=== PATIENT | male | born 1990 | race Caucasian/White ===

== ENCOUNTER 2019-03-18 12:28 | Emergency (ER) | payer SELFPAY ==
[2019-03-18 12:29] VITALS: BP 125/109; PULSE 94; RESP 16; TEMP 36.8; O2SAT 98; BMI 19.5
--- NOTE | 2019-03-18 13:15 | RAD_ITS ---
STUDY: X-RAY - UNILATERAL RIBS ( RIGHT ) WITH CHEST REASON FOR EXAM: Male, 28 years old. Anterior right rib pain after injury 3 days ago TECHNIQUE - RIBS: 4 view(s) of the ribs. TECHNIQUE - CHEST: PA COMPARISON: None. FINDINGS - RIBS: Normal visualized ribs without a demonstrated fracture. FINDINGS - CHEST: The lungs are clear but hyper expanded. There is no demonstrated pleural abnormality. Normal size heart. Normal mediastinum and pola. Normal visualized pulmonary arteries. Normal visualized aortic arch and descending thoracic aorta. Normal visualized thoracic spine. Normal visualized ribs, clavicles, and shoulders. There is no demonstrated abnormality of the visualized soft tissue structures of the upper abdomen. RAD/Ribs Uni Min 3V w/PA Chest IMPRESSION: RIBS: Normal x-ray examination of the ribs. CHEST: Nonacute x-ray examination of the chest. Electronically Signed: Garett Dailey MD at 13:39 EDT , Service support ,
[2019-03-18] MEDS: oxyCODONE 5 MG Tablet PO (13:16)
--- NOTE | 2019-03-18 14:04 | ED.VISSUMM ---
- ER Visit Summary Date of Service: 03/18/19 Chief Complaint: Right rib injury History of Present Illness: The patient is a 28 M who was hit in the right ribs by a metal bar 3 days ago while he was trying to tie down his load on his truck. Patient states pain has continued to worsen. He pain is worse with movement, palpation, or deep breathing. He did take some Tylenol this morning to try to help with pain. Physical Examination: Vital signs unremarkable. Pulse ox is 98% on room air. Patient sitting upright the side the bed holding his right ribs. He appears uncomfortable. Heart is regular rate and rhythm. Lung sounds are clear with air movement bilaterally. He does have right anterior lateral rib tenderness. No overlying ecchymosis or abrasion. There is no crepitus. Test Results: Rib series with chest x-ray is unremarkable. Emergency Department Course and Treatment: Patient is given a dose of oxycodone here. He had taken Tylenol prior to arrival. On repeat evaluation he is resting more comfortably. We discussed the importance of deep breathing. He will be given a short course of pain medication to help with his symptoms. He will be referred to local PCP to establish primary care. Treatment Plan: [] Disposition: Discharge Impression: Right rib contusion This note was generated with [employer] dictation software. It may contain incorrect words, spelling, and punctuation that were not noted in review of the chart prior to signing ED Disposition - Plan for ED Patient: Disposition: Home or Assisted Living Instructions: ED Contusion Rib Prescriptions: Hydrocodone Bitart/Apap 5-325 [[place] 5MG-325MG] 1 tablet PO Q6H PRN PRN 3 Days #10 tablet PRN Reason: Pain Referrals: Fast,Eusebia, DO [NON-STAFF] - As Needed
[2019-03-18 14:18] VITALS: BP 129/80; PULSE 72; RESP 14; O2SAT 96
== END 2019-03-18 14:19 | disposition home or self-care (01) ==
PROVIDERS: Emergency Provider Emergency Medicine
DX: S20.211A Contusion of right front wall of thorax, initial encounter (principal); R06.00 Dyspnea, unspecified; W22.8XXA Striking against or struck by other objects, initial encounter; Y93.9 Activity, unspecified; Y92.9 Unspecified place or not applicable; Z72.0 Tobacco use
CPT/HCPCS: 71101; 99282

== ENCOUNTER 2020-01-18 18:15 | Emergency (ER) | payer SELFPAY ==
[2020-01-18 18:16] VITALS: BP 111/83; PULSE 85; RESP 18; TEMP 37.7; O2SAT 97; BMI 19.9
[2020-01-18 18:18] VITALS: BP 111/83; PULSE 85; RESP 18; TEMP 37.7; O2SAT 97
--- NOTE | 2020-01-18 18:45 | ED.DCSUM_ITS ---
- ER Visit Summary Date of Service: 01/18/20 Chief Complaint: Cellulitis right hand History of Present Illness: The patient is a 29 M who presents with cellulitis to his right hand that began yesterday. Patient states he cut his hand at work 4 days ago. Patient states it was a superficial laceration that did not require sutures. Patient states he was cleaning it with peroxide. Patient states that yesterday he noted some redness around the cut. Patient states there was some purulent drainage from this area. Patient states today when he woke up he noted redness going up his forearm. Patient denies any fevers or chills. Patient admits to some tingling in his hand. Patient denies any weakness. Physical Examination: Vital signs are stable. Patient is afebrile here. Patient is in no acute distress. Skin is warm dry. There is an open wound on the dorsal aspect of his right hand over the first MP joint. There is no pain with short arc motion of his MP joint. There is erythema around the wound and extending over the dorsal aspect of his hand and forearm. The redness stops at the proximal forearm. There is good range of motion of the wrist and forearm. There is good range of motion of all other digits. Sensation was intact to light touch in all digits. Capillary refill was less than 2 seconds in all digits. Emergency Department Course and Treatment: Patient was given a dose of Keflex here. Bacitracin dressing was applied to the wound. Patient was given a prescription for Keflex. Patient was instructed to continue using bacitracin. Patient was instructed to follow-up with a primary care physician in 2-3 days. Patient understood and was agreeable with the plan. All questions were answered. Disposition: Discharge home Impression: Cellulitis and lymphangitis right hand and forearm This note was generated with [employer] dictation software. It may contain incorrect words, spelling, and punctuation that were not noted in review of the chart prior to signing ED Disposition - Plan for ED Patient: Disposition: Home or Assisted Living Diagnosis: Acute lymphangitis of hand Instructions: Cellulitis Prescriptions: Cephalexin [Keflex] 500 mg PO Q6 #40 cap Prescription Printed Referrals: Care Physician,No Primary [Primary Care Provider] - Felipe Thorpe DO [STAFF PHYSICIAN] - 2 Days
[2020-01-18] MEDS: Cephalexin 500 MG Capsule PO (18:51)
[2020-01-18] MEDS: BACITRACIN 15 GM Tube 1 APPLIC TOPICAL (18:52)
== END 2020-01-18 19:07 | disposition home or self-care (01) ==
LOC: ED 18:48
PROVIDERS: Emergency Provider Emergency Medicine
DX: L03.113 Cellulitis of right upper limb (principal); J02.9 Acute pharyngitis, unspecified; R05 Cough; F17.200 Nicotine dependence, unspecified, uncomplicated
CPT/HCPCS: 99283

== ENCOUNTER 2020-05-12 13:47 | Emergency (ER) | payer OTHER, SELFPAY ==
[2020-05-12 13:48] VITALS: BP 136/74; PULSE 134; RESP 16; TEMP 36.3; O2SAT 96; BMI 21.1
[2020-05-12] MEDS: Doxycycline 100 MG CAPSULE PO (14:14)
[2020-05-12] MEDS: Naproxen 250 MG Tablet 500 MG PO (14:16)
--- NOTE | 2020-05-12 14:17 | ED.VISSUMM ---
- ER Visit Summary Date of Service: 05/12/20 Chief Complaint: Lump on chin. History of Present Illness: The patient is a 29 M with no primary care physician. He reports that he has had lumps underneath his mandible bilaterally for approximately [address] Beard 3 to 4 months ago and was told that those are cysts. He was told that he needed to have them removed. He states the one on the left is increased in size this week. He describes a squeezing pain instead of 10 at worst and 3 of 10 currently. Is worsened by pushing on it. Is relieved by ibuprofen. He denies any constitutional symptoms. No fever, chills, nausea, or vomiting. He denies any dental pain. Discussed the patient fact that he is tachycardic. He reports that I live on red bull and coffee. Drank a red bull just prior to arrival in emergency department. Physical Examination: Vitals: Stable. Afebrile. General: Well-nourished and well-developed. Head: Normocephalic atraumatic. Neck: Supple, no lymphadenopathy. No JVD. Just inferior to his mandible in the submental region on the right there is a being sized sebaceous cyst. This is freely mobile. On the left there is a marble sized 1 with minimal erythema. I do not of free appreciate any induration or fluctuance. Cardiovascular: Tachycardic regular rhythm. No murmurs. Respiratory: No respiratory distress. Clear to auscultation bilaterally. Abdominal: Soft, nontender, nondistended, normal bowel sounds. No guarding, rebound, or peritoneal signs. Back: Nontender. Extremities: Nontender, no edema. Skin: Normal color, no rash. Neurologic: Alert and oriented ?3. Cranial nerves II through XII are intact. Normal strength and sensation. Psych: Normal affect. Emergency Department Course and Treatment: Had a prolonged discussion with the patient about treatment options. He has decided that he does not want an incision and drainage performed at this point. He is given doxycycline and naproxen. Treatment Plan: Patient will be discharged doxycycline naproxen. Instructed to follow-up with Dr. James within a week for a repeat exam and further treatment. Return to the emergency department for any worsening symptoms. Disposition: To home in improved and stable condition. Impression: 1. Infected sebaceous cyst of chin. This note was generated with Dragon dictation software. It may contain incorrect words, spelling, and punctuation that were not noted in review of the chart prior to signing ED Disposition - Plan for ED Patient: Instructions: ED Epidermoid Cyst Infect Antibiotics Prescriptions: Doxycycline 100 mg PO BID #14 capsule Naproxen [Naprosyn] 500 mg PO BID #14 tablet Referrals: Neo James MD [STAFF PHYSICIAN] - 1 Week
--- NOTE | 2020-05-12 14:31 | ED.RN ---
DISCHARGE INSTRUCTIONS GIVEN TO AND REVIEWED WITH PATIENT, PATIENT DENIES QUESTIONS OR CONCERNS AND VOICES UNDERSTANDING OF DISCHARGE INSTRUCTIONS. PT AMBULATES OUT OF ROOM WITHOUT DIFFICULTY.
== END 2020-05-12 14:30 | disposition home or self-care (01) ==
LOC: ED 14:24
PROVIDERS: Emergency Provider Emergency Medicine
DX: L72.3 Sebaceous cyst (principal); L08.9 Local infection of the skin and subcutaneous tissue, unspecified; F17.200 Nicotine dependence, unspecified, uncomplicated
CPT/HCPCS: 99283

== ENCOUNTER → 2021-05-12 17:50 | Outpatient (CLI) | payer SELFPAY ==
--- NOTE | 2021-05-12 17:58 | CT_ITS ---
STUDY: CT SOFT TISSUE NECK WITH CONTRAST REASON FOR EXAM: Male, 30 years old. Bilateral Neck Masses -- Rt. Side x 8 months -- Lt Side trippled in size recently -- Both are marked RADIATION DOSAGE (If Supplied By Facility): CTDIvol = ( 13.59 ) mGy, DLP = ( 434.69 ) mGycm TECHNIQUE: The patient was scanned in a multi-detector CT scanner. High resolution transaxial imaging was performed following intravenous administration of IV 100mL Isovue-370. Sagittal and coronal images were reconstructed. Individualized dose optimization techniques were used for this CT. COMPARISON: None. FINDINGS: Bilateral globes are intact. Small air-fluid level small polyps in the right maxillary sinus. Mucoperiosteal thickening of the left ethmoid air cells. Unremarkable visualized brain parenchyma. Intact bilateral parotid and submandibular glands. Vascular structures are intact. The airway is patent. Epiglottis of normal contour and size. Thyroid gland is homogeneous. Hypodense rim-enhancing lesions in the bilateral submandibular areas measuring 1.4 x 0.8 cm on the right and 0.7 x 0.5 cm on the left. These may represent abscesses or necrotic lymph nodes. Clinical correlation recommended. Mild emphysematous changes in the lung apices. Osseous structures intact. CT/Soft Tissue Neck WITH Contrast IMPRESSION: Two small hypodense lesions with enhancing rim located in the bilateral submandibular areas, which may represent abscesses or necrotic lymph nodes. Clinical correlation recommended. Electronically Signed: Zeferino Hays MD at 0:40 EDT Tel , Service support ,
== END ==
LOC: CT 17:52
PROVIDERS: Visit Provider Otolaryngology
DX: R22.1 Localized swelling, mass and lump, neck (principal)
CPT/HCPCS: 70491; Q9967

== ENCOUNTER → 2021-06-16 | Outpatient (CLI) | payer SELFPAY | END | disposition home or self-care (01) | LOC: LABSPEC 14:59 | PROVIDERS: Referring Provider Otolaryngology; Visit Provider Otolaryngology | DX: Z11.59 Encounter for screening for other viral diseases (principal); Z03.818 Encounter for observation for suspected exposure to other biological agents ruled out | CPT/HCPCS: 87635; U0005; U0003 ==

== ENCOUNTER → 2021-06-17 | Outpatient (CLI) | payer SELFPAY ==
--- NOTE | 2021-06-17 09:23 | LES_PTH ---
PATIENT: BESS WILKINSON LOC: [facility] U#:[id number] AGE/SX: 30/M ROOM: RE06/17/[address]: Dr. Curtis Anderson MD : 1990 BED: DIS: 06/17/2021 SPEC #: [id number] RECD: 06/17/21 14:45 STATUS: SUSANNA RENito #: [id number] SHAY: 06/17/21 09:[address]: Curtis Anderson DEPT: SURGICAL PATHOLOGY RECD BY: Skylar Muñiz ENTERED: 06/18/21 08:47 SP TYPE: Lesion OTHR DR: No Primary Care Phys WAS Tissues: Neck, NOS Procedures: Surgery Specimen Level III HEADER OPERATION: Excision neck masses PRE-OP DIAGNOSIS: Neck masses TISSUE SUBMITTED: Right neck mass MICROSCOPIC DIAGNOSIS Right neck mass, excision: Epidermal inclusion cyst. IRIS:mary 06/19/2021 MICROSCOPIC DESCRIPTION Slides are reviewed. GROSS DESCRIPTION Received is one container labeled with the patient's name and not further designated. The specimen consists of previously ruptured mcclendon-white cyst measuring 1.5 x 1.2 x 0.5 cm. The cyst content consists of mcclendon-white cheesy material. The cyst is bisected and submitted entirely in one cassette. Also present in the container are multiple fragments of mcclendon-white tissue consistent with cyst material. The entire specimen is submitted in one cassette. / SJ:mary 06/18/21 TC:5 [facility]: [id number]
== END | disposition home or self-care (01) ==
LOC: LABSPEC 15:14
PROVIDERS: Referring Provider Otolaryngology; Visit Provider Otolaryngology
DX: L72.0 Epidermal cyst (principal)
CPT/HCPCS: 88304; 88305

== ENCOUNTER 2023-06-16 17:38 | Emergency (ER) | payer SELFPAY ==
[2023-06-16 17:41] VITALS: BP 145/93; PULSE 78; RESP 18; TEMP 36.3; O2SAT 98; BMI 20.5
--- NOTE | 2023-06-16 17:50 | RAD_ITS ---
STUDY: X-RAY - UNILATERAL RIBS ( LEFT ) WITH CHEST REASON FOR EXAM: Male, 32 years old. INJURY TECHNIQUE - RIBS: 4 view(s) of the ribs. TECHNIQUE - CHEST: Single frontal view of the chest. COMPARISON: March 18, 2019 FINDINGS - RIBS: Normal visualized ribs without a demonstrated fracture. FINDINGS - CHEST: The lungs are clear and expanded. There is no demonstrated pleural abnormality. Normal size heart. Normal mediastinum and pola. Normal visualized pulmonary arteries. Normal visualized aortic arch and descending thoracic aorta. Normal visualized thoracic spine. Normal visualized ribs, clavicles, and shoulders. There is no demonstrated abnormality of the visualized soft tissue structures of the upper abdomen. RAD/Ribs Uni Min 3V w/PA Chest IMPRESSION: RIBS: Normal x-ray examination of the ribs. CHEST: Normal x-ray examination of the chest. Electronically Signed: Brady Wei MD at 18:36 EDT ,
--- NOTE | 2023-06-16 18:28 | EX.ED.GENINJ ---
HPI History of Present Illness Chief Complaint: Chest Other Informant: patient Onset/Context/Timing Onset: Days (5 days ago) Narrative Narrative: Patient presents with left rib injury. He states he was wrestling with a coworker 5 days ago when he felt a popping sensation in his left lateral chest. Since that time he had increasing pain and pain is worse with a deep breath. He has been taking ibuprofen 3 times a day. PFSH PFS Medical History no medical history no medical history Home Medications doxycycline monohydrate 100 mg capsule 100 mg PO BID #14 caps 05/12/20 [Rx Last Taken Unknown] naproxen 500 mg tablet 500 mg PO BID #14 tabs 05/12/20 [Rx Last Taken Unknown] Allergy/AdvReac Type Severity Reaction Status Date / Time No Known Allergies Allergy Verified 06/16/23 17:40 Social History Smoking Status: Current every day smoker ROS ROS ED Constitutional Constitutional ED: Denies chills or fever(s) Eyes Eyes: Denies change in vision ENT ENT ED: Denies rhinorrhea or sore throat Cardiovascular Cardiovascular: Reports chest pain; Denies palpitations Respiratory/Chest Respiratory/Chest: Reports dyspnea; Denies cough Gastrointestinal Gastrointestinal: Denies abdominal pain, nausea or vomiting Musculoskeletal Musculoskeletal: Denies extremity pain Integumentary Denies Abrasions or rash Neurologic Neurologic: Denies headache(s) or weakness Psychiatric Psychiatric: Denies anxiety or depression Allergic/Immunologic Allergic/Immunologic ED: Denies lip swelling or urticaria EXAM Physical Exam Const Vital Signs: 06/16/23 17:41 Temperature 97.3 F L Temperature Source Temporal Pulse Rate 78 Respiratory Rate 18 Blood Pressure 145/93 H Blood Pressure Mean 110 Pulse Ox 98 Oxygen Delivery Method Room Air Positive well nourished and well developed General Appearance ED: well developed HEENT Reports normocephalic and head/scalp atraumatic Eyes PERRL and EOMs intact bilaterally Neck supple Chest Wall inspection of chest normal Chest Narrative: Left lateral chest wall tenderness. No crepitus. Resp normal respiratory effort and clear to auscultation bilaterally Cardio regular rate and regular rhythm GI non-tender Palpation: soft Extremity normal to inspection Neuro oriented x3 and no sensory deficits noted Sensorium / Orientation: alert Motor Exam: strength 5/5 throughout Psych mental status grossly normal Skin no rashes or lesions noted MDM MDM MDM Narrative Medical decision making narrative: Rib series with chest x-ray obtained per nursing protocol. Per my interpretation I see no obvious displaced rib fracture and no pneumothorax. Radiology interpretation is reviewed and agrees. Patient does not want anything for pain at home. He will continue his Tylenol and ibuprofen. We discussed importance of deep breathing to prevent pneumonia. Return instructions given Radiography Diagnostic Testing: Clinical Impression(s) from Imaging Studies Ribs w/Chest X-Ray 06/16/23 17:50 IMPRESSION: RIBS: Normal x-ray examination of the ribs. CHEST: Normal x-ray examination of the chest. Electronically Signed: Brady Wei MD at 18:36 EDT , Discharge Plan Triage Chief Complaint: Chest Other ED Provider: Nina Saunders Dx/Rx/DC Orders Clinical Impression: Rib contusion Instructions: ED Chest Wall Contusion Prescriptions: No Action doxycycline monohydrate 100 MG capsule 100 mg PO BID Qty: 14 0RF naproxen 500 MG tablet 500 mg PO BID Qty: 14 0RF Primary Care Provider: Care Physician,No Primary Referrals: Kayley Anderson MD [Med Staff - Neonatal Intensive Care Nurse] - As Needed Care Physician,No Primary [Primary Care Provider] - Disposition Disposition: Home, Self Care
[2023-06-16 19:37] VITALS: RESP 18
[2023-06-16 19:38] VITALS: RESP 18
== END 2023-06-16 19:39 | disposition home or self-care (01) ==
PROVIDERS: Emergency Provider Emergency Medicine; Visit Provider Emergency Medicine
DX: S20.219A Contusion of unspecified front wall of thorax, initial encounter (principal); F17.200 Nicotine dependence, unspecified, uncomplicated; X58.XXXA Exposure to other specified factors, initial encounter; Y93.72 Activity, wrestling
CPT/HCPCS: 71101; 99282

== ENCOUNTER 2025-06-05 08:02 | Emergency (ER) | payer SELFPAY ==
[2025-06-05 08:03] VITALS: BP 126/87; PULSE 99; RESP 16; TEMP 36.7; O2SAT 100; BMI 19.3
--- NOTE | 2025-06-05 08:15 | EX.ED.DYSGE1 ---
HPI History of Present Illness Chief Complaint: Weakness Detail of Chief Complaint: Concern for Lyme disease Informant: patient Narrative Narrative: Patient presents to the emergency department concern for possible Lyme disease. Patient states that he found a tick on in the back of his head on the right side at the base of the skull. Tick was found a couple weeks ago. About a week ago he started having nausea and vomiting. Started having bodyaches. This morning he noted a rash over the left hip area. Patient states that his dogs recently were treated for Lyme. He had a fever 4 days ago but none since. [facility] Medical History (Updated 06/05/25 @ 09:[address] Lc Barbour DO) Collapsed lung C. difficile colitis Home Medications ?Medication ?Instructions ?Recorded ?Last Taken ?Type doxycycline monohydrate 100 mg 100 mg PO BID #14 caps 05/12/20 Unknown Rx capsule naproxen 500 mg tablet 500 mg PO BID #14 tabs 05/12/20 Unknown Rx doxycycline monohydrate 100 mg 100 mg PO BID #28 CAPSULES 06/05/25 Unknown Rx capsule Allergy/AdvReac Type Severity Reaction Status Date / Time No Known Allergies Allergy Verified 06/05/25 08:04 Social History Smoking Status: Current every day smoker tobacco type: cigarettes ROS ROS ED Review of Systems ROS Unobtainable: other Constitutional Constitutional ED: Reports fever(s) and lethargy; Denies chills, sweats or weight loss Eyes Eyes: Denies blurry vision, change in vision or diplopia ENT ENT ED: Denies rhinorrhea or sore throat Cardiovascular Cardiovascular: Denies chest pain, orthopnea or racing heartbeat Respiratory/Chest Respiratory/Chest: Denies cough, dyspnea, dyspnea on exertion, orthopnea or sputum Gastrointestinal Gastrointestinal: Denies abdominal pain, diarrhea, nausea or vomiting Genitourinary Genitourinary ED: Denies dysuria, hematuria or urinary frequency Musculoskeletal Musculoskeletal: Reports arthralgias; Denies back pain, myalgias or neck pain Integumentary Reports rash; Denies abscess or Abrasions Neurologic Neurologic: Denies headache(s) or weakness Psychiatric Psychiatric: Denies anxiety, depression or suicidal thoughts Endocrine Endocrinology: Denies polydipsia, polyphagia or polyuria Hematologic/Lymphatic Hematologic/Lymphatic: Denies easy bleeding, easy bruising or lymphadenopathy Allergic/Immunologic Allergic/Immunologic ED: Denies mouth swelling, tongue swelling or urticaria EXAM Physical Exam Const Vital Signs: 06/05/25 08:03 06/05/25 08:14 Temperature 98.1 F Temperature Source Temporal Pulse Rate 99 Respiratory Rate 16 Respiratory Effort Normal Blood Pressure 126/87 H Blood Pressure Mean 100 Pulse Ox 100 Oxygen Delivery Method Room Air Positive well nourished and well developed General Appearance ED: well developed and NAD HEENT Reports TM's clear and moist mucous membranes normocephalic and atraumatic; Negative for trauma or tenderness Tympanic Membrane ED: Yes TM's clear Eyes PERRL and EOMs intact bilaterally General Eye ED: Negative for pale conjunctiva or scleral icterus Neck no lymphadenopathy, supple and no JVD General: Negative for tenderness Chest Wall inspection of chest normal and palpation of chest normal Chest: Negative for tenderness Resp normal respiratory effort and clear to auscultation bilaterally Effort and Inspection: Negative for respiratory distress or pain with movement Auscultation: Negative for rhonchi, wheezes or diminished lung sounds Cardio regular rate, regular rhythm, S1 normal heart sound, S2 normal heart sound and no murmurs Peripheral Pulses: pulses 2+ throughout GI normal to inspection, nondistended, normoactive bowel sounds, soft to palpation, non-tender, non-distended and no masses Back/Spine no CVA tenderness and no thoracic nor lumbar tenderness Extremity normal to inspection Extremity Narrative: No tenderness with range of motion of the hip joints or knee joints. There is an area of erythema over the left lateral hip that is circular and measures approximately 8 cm in diameter. Some subtle central clearing. General Extremety ED: Negative for edema General Extremity: Negative for edema Neuro oriented x3, CN's II-XII intact bilaterally, no sensory deficits noted and gait normal Sensorium / Orientation: awake, alert, oriented to person, oriented to place and oriented to time Motor Exam: strength 5/5 throughout and strength abnormal Psych mental status grossly normal Skin No no rashes or lesions noted and no wounds Skin Narrative: Circular area of erythema over the left lateral hip with some mild central clearing. MDM MDM MDM Narrative Medical decision making narrative: Patient presents emergency department concern for Lyme disease. Had a tick bite couple weeks ago and then developed body aches and arthralgia's as well as a fever for day. Now rash to left hip. Clinically looks well. IV line established. CBC with differential obtained showing a 7.3 with hemoglobin 15 and platelet count of 172. Chemistries unremarkable. He had minimal elevation of his AST at 75 and ALT of 51. Alk phos was normal at 102. Patient had testing for Lyme sent out. I did start him on doxycycline. Will treat with doxycycline for 14 days. Will refer to primary care physician on-call for no doc. The rash over the left hip I suspect may be related to Lyme as it does appear to be somewhat bull's-eye in shape. I do not feel like that he has a septic joint. He has normal painless range of motion. Lab Data Attestation: I reviewed the patient's lab results. Labs: Laboratory Results - last 24 hr 06/05/25 08:25 WBC 7.3 RBC 4.77 Hgb 15.3 Hct 43.2 MCV 90.6 MCH 32.1 H MCHC 35.4 RDW Std Deviation 38.9 RDW Coeff of Michelle 11.9 Plt Count 172 MPV 9.9 Immature Gran % (Auto) 0.300 Neut % (Auto) 71.0 H Lymph % (Auto) 16.9 L Dillon % (Auto) 11.1 H Eos % (Auto) 0.3 Baso % (Auto) 0.4 Absolute Neuts (auto) 5.2 Absolute Lymphs (auto) 1.23 Nucleated RBC % 0 Sodium 133 Potassium 3.7 Chloride 96 L Carbon Dioxide 21.8 Anion Gap 15 BUN 8 Creatinine 1.01 Estim Creat Clear Calc 82.16 Est GFR (MDRD) Non-Af 101 BUN/Creatinine Ratio 8.2 L Glucose 122 H Calcium 9.7 Total Bilirubin 1.21 AST 75 H ALT 51 H Alkaline Phosphatase 102 Total Protein 7.3 Albumin 4.3 Globulin 3.0 Albumin/Globulin Ratio 1.4 Discharge Plan Triage Chief Complaint: Weakness ED Provider: Lc Barbour Dx/Rx/DC Orders Clinical Impression: Acute Lyme disease, Tick bite Instructions: ED Tick Bite, Antibiotic Treatment Prescriptions: New doxycycline monohydrate 100 mg capsule 100 mg PO BID Qty: 28 0RF No Action doxycycline monohydrate 100 MG capsule 100 mg PO BID Qty: 14 0RF naproxen 500 MG tablet 500 mg PO BID Qty: 14 0RF Primary Care Provider: Care Physician,No Primary Referrals: Surinder Morales MD [Med Staff - Active Staff] - 5-7 Days Care Physician,No Primary [Primary Care Provider] - Print Language: Swedish Disposition Disposition: Home, Self Care
[2025-06-05] MEDS: 0.9% Normal Saline (1000mL) 1,000 ML 1000 ML IV (08:31)
[2025-06-05 08:34] LABS: Hematocrit 43.2 % (40-54); Hemoglobin 15.3 g/dL (13.0-16.5); Immature Granulocytes Count 0.020 X10^3/uL (0.0-0.0); Mean Corp Hgb Conc 35.4 g/dL (32-36); Mean Corpuscular Volume 90.6 fL (80-94); Mean Platelet Vol. 9.9 fl (6.2-12.0); NRBC Flagged by Analyzer 0 % (0-5); Platelet Count 172 K/mm3 (150-450); RBC Distribution Width CV 11.9 % (11.6-14.6); RBC Distribution Width SD 38.9 fl (35.1-43.9); Red Blood Count 4.77 M/mm3 (4.6-6.2); White Blood Count 7.3 K/mm3 (4.4-11.0)
--- OUTSIDE RECORDS SUMMARY | 2025-06-05 08:57 | XMS RPT_ITS | CCD ---
Author Organization [facility] Inform ion Partnership [facility] Care Team Providers Care Burner Hand Name Role Phone LIZ CHAVEZ (MANAGER ORDER) Unavailable LIZ Velasquez (MANAGER ORDER) Unavailable LIZ Velasquez (MANAGER ORDER) Unavailable Unavai bryan PETERSON APRN - MANAGER ORDER, MCKENZIE Vazquez Primary Care [facility] JUSTIN, DR ROMEL Arriaga Admitting [facility], DR ROMEL Arriaga Attending [facility], DR ROMEL Arriaga Primary Care [facility] Attending [facility] Primary Care [facility] Admitting Unavailable Nina Saunders Attending Unavailable Care Physician, No Primary Primary Care Unava Rosenda Barahona MD Unavailable [phone] CALVIN FARR MD Unavailable [phone] Medications Current Medications Medication Drug Class(es) Dates Sig (Normalized) Sig (Original) dicyclomine hydrochloride 20 mg oral tablet (1 source) Anticholinergic Start: 06-01-2022 End: 07-01-2022 dicyclomine 20 mg oral tablet Dose : 20 mg = 1 tab(s), Oral, TID, # 90 tab(s), 0 Refill(s), Pharmacy: [facility]/pharmacy #[id number], Chronic abdominal pain Chronic diarrhea, 175, cm, 06/01/22 10:34:00 EDT, Height Start Date: 06/01/22 Stop Date: 07/01/22 Status: Ordered doxycycline monohydrate 100 mg oral capsule (1 source) Tetracycline-class Drug Start: 05-12-2020 take 100 mg by mouth twice daily Doxycycline Monohydrate Active 100 MG PO TWICE A DAY May 12, 2020 12:00am naproxen 500 mg oral tablet (1 source) Nonsteroidal Anti-inflammatory Drug Start: 05-12-2020 take 500 mg by mouth twice daily Naproxen Active 500 MG PO TWICE A DAY May 12, 2020 12:00am omeprazole 40 mg delayed release oral capsule (2 sources) Proton Pump Inhibitor Start: 06-22-2022 omeprazole 40 mg oral delayed release capsule Dose : 40 mg = 1 cap(s), Oral, qDay, # 30 cap(s), 0 Refill(s), Pharmacy: [facility]/pharmacy #[id number], Chronic abdominal pain Chronic diarrhea, 175, cm, 06/22/22 15:00:00 EDT, Height, kg, 06/22/22 15:00:00 EDT, Dosing Weight Start Date: 06/22/22 Status: Ordered Start: 06-01-2022 omeprazole 40 mg oral delayed release capsule Dose : 40 mg = 1 cap(s), Oral, qDay, # 30 cap(s), 0 Refill(s), Pharmacy: [facility]/pharmacy #[id number], Chronic abdominal pain Chronic diarrhea, 175, cm, 06/01/22 10:34:00 EDT, Height Start Date: 06/01/22 Status: Ordered Completed/Discontinued Medications Medication Drug Class(es) Dates Sig (Normalized) Sig (Original) acetaminophen 325 mg / HYDROcodone bitartrate 5 mg oral tablet (1 source) Opioid Agonist Start: 03-18-2019 End: 03-21-2019 take 1 tablet by mouth every six hours as needed Hydrocodone-Acetami nophen Discontinued 1 TABLET PO EVERY 6 HOURS NEEDED 10 March 18, 2019 12:00am March 21, 2019 12:06am Problems Active Problems Problem Classification Problem Date Documented Date Episodic/Chronic Abdominal pain (5 sources) Right upper quadrant pain; Translations: [Chronic abdominal pain] Onset: 7 06-01-2022 Episodic Deficiency and other anemia (2 sources) 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 Comment on above: history of Disorders of lipid metabolism (2 sources) Pure hypercholesterolemia 01-02-2011 Chroni c Nausea and vomiting (2 sources) Nausea 06-01-2022 Episodic Noninfectious gastroenteritis (2 sources) Chronic diarrhea 06-01-2022 Episodic Open wounds of extremities (2 sources) Laceration without foreign body of right forearm, initial encounter; Translations: [Laceration without foreign body of right shoulder, initial encounter] Onset: 2 Episodic Open wounds of head; neck; and trunk (4 sources) Laceration without foreign body of scalp, initial encounter; Translations: [Laceration without foreign body of other part of head, initial encounter] Onset: 2 Episodic Other nutritional; endocrine; and metabolic disorders (2 sources) Unintentional weight loss 06-01-2022 Episod ic Other skin disorders (2 sources) Night sweats 06-01-2022 Episodic Skin and subcutaneous tissue infections (1 source) Acute lymphangitis of hand ; Translations: [Acute lymphangitis of unspecified part of limb] 01-19-2020 Episodic Sprains and strains (2 sources) Sprain of lumbar 01-02-2011 Episodic Superficial injury; contusion (2 sources) Contusion of rib; Translations: [Contusion of unspecified front wall of thorax, initial encounter] Onset: 3 06-16-2023 Episodic Unclassified (1 source) Unknown / UNK(Unknown) Onset: 7 Past or Other Problems Problem Classification Problem Date Documented Da te Episodic/Chronic Unclassified (1 source) Flank pain - The flank pain has been occurring in an intermittent (worse with work) pattern for 2 months. There has been no associated chills, cough, dysuria, fever, frequency or hematuria. Note for Flank pain: Left flank pain. 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 Results Test Name Value Interpretation Reference Range Facility Emergency Department Summary on 06-16-2023 Emergency Department Summary [facility] Medical Records Department [address] [place] [address] Emergency Department Summary 06/16/23 MR#: [id number] Acct: [id number] Name: BESS ASHLEY Rep #: [id number] : 1990 32 From: Nina Saunders MD PCP: Care Physician,No Primary Status:DEP ER Location: ED HPI History of Present Illness Chief Complaint: Chest Other Informant: patient Onset/Context/Timing Onset: Days (5 days ago) Narrative Narrative: Patient presents with left rib injury. He states he was wrestling with a coworker 5 days ago when he felt a popping sensation in his left lateral chest. Since that time he had increasing pain and pain is worse with a deep breath. He has been taking ibuprofen 3 times a day. [facility] Medical History no medical history no medical history Home Medications doxycycline monohydrate 100 mg capsule 100 mg PO BID #14 caps 05/12/20 [Rx Last Taken Unknown] naproxen 500 mg tablet 500 mg PO BID #14 tabs 05/12/20 [Rx Last Taken Unknown] Allergy/AdvReac Type Severity Reaction Status Date / Time No Known Allergies Allergy Verified 06/16/23 17:40 Social History Smoking Status: Current every day smoker ROS ROS ED Constitutional Constitutional ED: Denies chills or fever(s) Eyes Eyes: Denies change in vision ENT ENT ED: Denies rhinorrhea or sore throat Cardiovascular Cardiovascular: Reports chest pain; Denies palpitations Respiratory/Chest Respiratory/Chest: Reports dyspnea; Denies cough Gastrointestinal Gastrointestinal: Denies abdominal pain, nausea or vomiting Musculoskeletal Musculoskeletal: Denies extremity pain Integumentary Denies Abrasions or rash Neurologic Neurologic: Denies headache(s) or weakness Psychiatric Psychiatric: Denies anxiety or depression Allergic/Immunologic Allergic/Immunologic ED: Denies lip swelling or urticaria EXAM Physical Exam Const Vital Signs: 06/16/23 17:41 Temperature 97.3 F L Temperature Source Temporal Pulse Rate 78 Respiratory Rate 18 Blood Pressure 145/93 H Blood Pressure Mean 110 Pulse Ox 98 Oxygen Delivery Method Room Air Positive well nourished and well developed General Appearance ED: well developed HEENT Reports normocephalic and head/scalp atraumatic Eyes PERRL and EOMs intact bilaterally Neck supple Chest Wall inspection of chest normal Chest Narrative: Left lateral chest wall tenderness. No crepitus. Resp normal respiratory effort and clear to auscultation bilaterally Cardio regular rate and regular rhythm GI non-tender Palpation: soft Extremity normal to inspection Neuro oriented x3 and no sensory deficits noted Sensorium / Orientation: alert Motor Exam: strength 5/5 throughout Psych mental status grossly normal Skin no rashes or lesions noted MDM MDM MDM Narrative Medical decision making narrative: Rib series with chest x-ray obtained per nursing protocol. Per my interpretation I see no obvious displaced rib fracture and no pneumothorax. Radiology interpretation is reviewed and agrees. Patient does not want anything for pain at home. He will continue his Tylenol and ibuprofen. We discussed importance of deep breathing to prevent pneumonia. Return instructions given Radiography Diagnostic Testing: Clinical Impression(s) from Imaging Studies Ribs w/Chest X-Ray 06/16/23 17:50 IMPRESSION: RIBS: Normal x-ray examination of the ribs. CHEST: Normal x-ray examination of the chest. Electronically Signed: Brady Wei MD at 18:36 EDT Reading Location ID and State: [address] [place] [address] , Service support , Discharge Plan Triage Chief Complaint: Chest Other ED Provider: Nina Saunders Dx/Rx/DC Orders Clinical Impression: Rib contusion Instructions: ED Chest Wall Contusion Prescriptions: No Action doxycycline monohydrate 100 MG capsule 100 mg PO BID Qty: 14 0RF naproxen 500 MG tablet 500 mg PO BID Qty: 14 0RF Primary Care Provider: Care Physician,No Primary Referrals: Kayley Anderson MD [Med Staff - Dumpster Driver] - As Needed Care Physician,No Primary [Primary Care Provider] - Disposition Disposition: Home, Self Care What to do if you have Problems For any increased pain, shortness of breath, bleeding, nausea or vomiting, chest pain, or any unexpected problems, contact your Primary Care Provider. Call [facility] ([phone]) or report to the closest Emergency Room. Call 911 if necessary. 06/16/23 2240 Cosigner Signature (if applicable): CC: No Primary Care Physician Signed Normal [facility] Ribs Uni Min 3V w/PA Cheston 06-16-2023 Ribs Uni Min 3V w/PA Chest [facility] Imaging Services [address] [place] [address] Ribs Uni Min 3V w/PA Chest MR#: [id number] Acct: [id number] Name: BESS ASHLEY Rep #: [id number] : 1990 M 32 From: Brady Wei MD PCP: Care Physician,No Primary Status: REG ER Study: Ribs Uni Min 3V w/PA Chest Date of Exam: 06/16 Exam# [id number] Ordering Dr: Nina Saunders MD STUDY: X-RAY - UNILATERAL RIBS ( LEFT ) WITH CHEST REASON FOR EXAM: Male, 32 years old. INJURY TECHNIQUE - RIBS: 4 view(s) of the ribs. TECHNIQUE - CHEST: Single frontal view of the chest. COMPARISON: March 18, 2019 FINDINGS - RIBS: Normal visualized ribs without a demonstrated fracture. FINDINGS - CHEST: The lungs are clear and expanded. There is no demonstrated pleural abnormality. Normal size heart. Normal mediastinum and pola. Normal visualized pulmonary arteries. Normal visualized aortic arch and descending thoracic aorta. Normal visualized thoracic spine. Normal visualized ribs, clavicles, and shoulders. There is no demonstrated abnormality of the visualized soft tissue structures of the upper abdomen. RAD/Ribs Uni Min 3V w/PA Chest IMPRESSION: RIBS: Normal x-ray examination of the ribs. CHEST: Normal x-ray examination of the chest. Electronically Signed: Brady Wei MD at 18:36 EDT , CC: Dr. Nina Saunders MD; No Primary Care Physician [employer] Consultant: Signed Normal [facility] EMERGENCY REPORTon 2 EMERGENCY REPORT [facility] EMERGENCY ROOM REPORT NAME ACCOUNT SEX AGE ADMIT DISCHARGE PT MED. RECORD# NUMBER DATE DATE TYPE MINH, [id number] M 31 09/03/22 09/03/22 3 BESS Kumar [id number] ROOM: ER DATE OF : 1990 DICTATING PHYSICIAN: Romel Anderson HISTORY OF PRESENT ILLNESS: The patient came in. 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 He stopped the blade; however, the blade was still spinning. He went to step up, and when he stepped up he accidentally went into the blade with his head. Fortunately he was wearing a helmet, and the blade went through the helmet. He also put his arm up, and he has a laceration to the forearm which is about 1 cm but has a large hematoma around it. He had a 6 cm laceration of the scalp and multiple abrasions and lacerations to the shoulder and also a 3 cm laceration of the left forehead area. He had no loss of consciousness. He came in by EMS. Bleeding was controlled with pressure. He complains of minimal pain. PAST MEDICAL HISTORY: Unremarkable. He has had orthopedic problems in the past. SOCIAL HISTORY: He does smoke a half pack of cigarettes a day and occasionally drinks alcohol. REVIEW OF SYSTEMS: Ten systems were reviewed and were negative except as mentioned above. PHYSICAL EXAMINATION: GENERAL: He is an awake, alert and oriented male in no acute distress. He has a laceration which is 6 cm in the scalp. He has a 3 cm laceration to the left forehead area. He has 2 lacerations/abrasions to the shoulder. One is 3 cm, and the other is 2 cm. There is a 1 cm laceration on the right forearm with a hematoma. VITAL SIGNS: Per chart. The patient is afebrile. Pulse is 77, respirations 18, blood pressure 116/80, and pulse oximetry 100% on room air. HEENT: Head is normocephalic, atraumatic. Eyes: Pupils are equal, round and reactive to light. Extraocular muscles are intact. Nares are patent. Throat has adequate oral moisture. Uvula is midline. NECK: Neck is supple without petechiae or rash. HEART: Heart rate is regular without murmur. S1 is equal to S2. No S3 or S4 appreciated. LUNGS: Lungs are clear to auscultation bilaterally. No rales, rhonchi or retractions. ABDOMEN: Abdomen is soft, nontender and nondistended. SKIN: Skin is warm and dry. DIAGNOSTIC DATA: I did get a CT of the brain, which was unremarkable. X-ray of the forearm was unremarkable. EMERGENCY DEPARTMENT COURSE AND TREATMENT: I did place him in a splint Page 1 of 2 BESS ASHLEY Emergency Room Report BESS ASHLEY : 1990 because I do not really want him moving the area where he has the laceration and hematoma. He has numbness or tingling. I do not suspect compartment syndrome at this time. We will place him on prophylactic antibiotics of Keflex. His tetanus was updated. He will be discharged in stable condition. DIAGNOSES: 1. Five-foot saw blade injury. 2. Laceration, 6 cm, of the scalp. 3. Laceration, 3 cm, of the left side of the forehead with repair. 4. Laceration, 1 cm, of the right forearm. 5. Laceration, 3 cm, of the right shoulder. 6. Laceration, 2 cm, of the shoulder. 7. Multiple abrasions. 8. Tetanus update. Dictated By: Romel Anderson DO 09/03/22 19:22 JOB #: [id number] Transcribed By: luisa 09/04/22 10:41 Electronically signed by: KENYON Anderson DO 09/05/22 08:14 Page 2 of 2 ASHLEY BESS Kumar Emergency Room Report Normal [facility] CT BRAIN W/O CONTRASTon 11-0 CT BRAIN W/O CONTRAST [place] [address] Patient: BESS ASHLEY. Phone#: : 1990 Age: 31 Gender: M Pt. Type: ER Account: [id number] Location: [facility] Ordering: ROMEL ANDERSON Exam Date: 09/03/2022/13:53 Family Phys: Charge Code: [id number] Physician: Washburn Order #: [id number] Dose#: 52.30 mGy PROCEDURE: CT BRAIN WITHOUT CONTRAST COMPARISON: None. INDICATIONS: Trauma TECHNIQUE: CT images were obtained without contrast material. All CT scans at this facility use dose modulation, iterative reconstruction, and/or weight based dosing when appropriate to reduce radiation dose to as low as reasonably achievable. IV CONTRAST: No IV contrast used,ml TOTAL DOSE: 52.30 CTDIvol(mGy) FINDINGS: CEREBRUM: No edema, hemorrhage, mass, or inappropriate atrophy. CEREBELLUM: No edema, hemorrhage, mass, or inappropriate atrophy. BRAINSTEM: No edema, hemorrhage, mass, or inappropriate atrophy. CSF SPACES: Ventricles, cisterns, and sulci are appropriate for age. No hydrocephalus, subarachnoid hemorrhage, or mass. SKULL: No mass or other significant visible lesion. SINUSES: Limited views demonstrate no significant mucosal thickening or fluid. ORBITS: Limited views are unremarkable. OTHER: Left frontal scalp soft tissue swelling and foci of air consistent with laceration. Left posterior parietal scalp soft tissue swelling with foci of air consistent with laceration. CONCLUSION: 1. No appreciable acute intracranial abnormality 2. Left frontal and left posterior parietal scalp lacerations and soft tissue swelling. Dictated by: Grace Castellanos MD on 09/03/2022 at 14:10 Continued Report - Page 2 of 2 Patient: BESS ASHLEY Phone#: : 1990 Age: 31 Gender: M Pt. Type: ER Account: [id number] Location: 052 Ordering: ROMEL ANDERSON Exam Date: 09/03/2022/13:53 Family Phys: Charge Code: [id number] Physician: Washburn Order #: [id number] Dose#: 52.30 mGy Approved by: Grace Castellanos MD on 09/03/2022 at 14:15 Normal [facility] FOREARM RTon 09-03-2022 FOREARM RT [place] [address] Patient: BESS ASHLEY Phone#: : 1990 Age: 31 Gender: M Pt. Type: ER Account: [id number] Location: 052 Ordering: ROMEL ANDERSON Exam Date: 09/03/2022/14:15 Family Phys: Charge Code: [id number] Physician: Washburn Order #: [id number] Dose#: PROCEDURE: X-RAY FOREARM RT 2 VIEWS COMPARISON: None. INDICATIONS: Injury. FINDINGS: BONES: No acute fracture or dislocation. Evidence of remote nonunited ulnar styloid process fracture. SOFT TISSUES: Soft tissue swelling of the mid proximal forearm. No radiopaque foreign object. EFFUSION: None visible. OTHER: Negative. CONCLUSION: 1. No acute osseous abnormality. No radiopaque foreign object. Dictated by: Grace Castellanos MD on 09/03/2022 at 14:24 Approved by: Grace Castellanos MD on 09/03/2022 at 14:26 Normal [facility] HEPATOBILIARY DUCT SYSTEM IMAGINGon 07-09-2022 [place] HEPATOBILIARY DUCT SYSTEM IMAGING ORIGINAL EXAMINATION: HIDA07/09/2022 12:40 pm TECHNIQUE: Approximately 4.3 millicuries Tc99m Mebrofenin was administered IV. Then, dynamic images of the abdomen were obtained in the anterior projection for 60 mins. Slow infusion of 1.1 mcg cholecystokinin was administered intravenously over 30 mins. Images were obtained in the anterior projection and regions of interest were drawn around the gallbladder and ejection fraction was calculated. COMPARISON: None HISTORY: Reason for Exam: see Dx Right upper quadrant pain FINDINGS: Prompt, homogenous uptake by the liver is noted with normal appearance of radiotracer excretion into the biliary system. Clearance of blood pool activity appears appropriate. Gallbladder and small bowel are visualized in appropriate sequence and time. Bowel activity adjacent to the gallbladder limits accurate calculation of gallbladder ejection fraction. Gallbladder ejection fraction is approximately 57%. Normal value is >35% for CCK protocol. IMPRESSION: Adequate gallbladder emptying. Interpreted by: Prem Gilbert MD Preliminary Report By: Prem Gilbert MD Electronically signed By Prem Gilbert MD Dictated Date: 07/09/2022 12:44:09 PM Prelim Date: 07/09/2022 12:47:58 PM Sign Date: 07/09/2022 12:47:58 PM Ordering Provider: MCKENZIE PETERSON Normal [facility] ([place]) ENDOon 06-19-2022 TGT Ab (IGA) <20.0 Normal <=20.0 [facility] ([place]) Comment on above: Result Comment: Effstella ctive 07/25/2007: Evaluation of Transglutaminase Ab (IgA) results: Negative: Less than 20 Weak positive: 20 to 30 Positive: Greater than 30 Transglutaminase Ab is present in approximately 95% to 100% of patients with celiac disease and 80% of patients with dermatitis herpetiformis. The antibody is rarely found in other conditions. Transglutaminase Ab levels will decrease or increase depending on the removal or reintroduction of gluten into the diet. Patients who are IgA deficient develop celiac disease more frequently than individuals who have an intact IgA system. Therefore, gliadin and transglutaminase IgA antibodies may be absent in patients with celiac disease. IgG antibodies to gliadin are especially helpful in IgA deficient patients. These test results were obtained with the [employer] QUANTA Lite h-tTG IgA YOLIS. h-tTG IgA values obtained with different manufacturers' assay methods may not be used interchangeably. Performed By: #### E MANASAO, GLIAD #### [facility] [address] [place] [id number] GLIADon 06-19-2022 Gliadin Ab IgA <20 Normal <=20 [facility] ([place]) Comment on above: Result Comment: Glia din IgG and IgA Ab Interpretation (effective 09/26/07): Result Units Negative <20 Weak Positive 20-30 Moderate to Strong Positive >30 Both IgG and IgA antibodies to gliadin are present in most patients with celiac disease (CD). However, antibody to gliadin may be present in Crohn's disease, dermatitis herpetiformis or in subjects with no clinical evidence of intestinal disease. In healthy individuals with a family history of CD, the antibodies may precede the clinical onset of disease in approximately 25% of the subjects. Gliadin antibody levels will decrease or increase depending on the removal or reintroduction of gluten into the diet. Patients who are IgA deficient develop celiac disease more frequently than individuals who have an intact IgA system. Therefore, gliadin and transglutaminase IgA antibodies may be absent in patients with celiac disease. IgG antibodies to gliadin are especially helpful in IgA deficient patients. A negative result indicates no gliadin antibody or levels below the negative cut-off of the assay. Results of this assay should be used in conjunction with clinical findings and other serological tests. These test results were obtained with the [employer] QUANTA Lite Gliadin IgG II and Gliadin IgA II. Gliadin values obtained with different manufacturers' assay methods may not be used interchangeably. Performed By: #### E MANASAO, GLIAD #### [facility] [address] [place] [id number] Gliadin Ab IgG <20 Normal <=20 [facility] ([place]) Comment on above: Result Comment: Glia din IgG and IgA Ab Interpretation (effective 09/26/07): Result Units Negative <20 Weak Positive 20-30 Moderate to Strong Positive >30 Both IgG and IgA antibodies to gliadin are present in most patients with celiac disease (CD). However, antibody to gliadin may be present in Crohn's disease, dermatitis herpetiformis or in subjects with no clinical evidence of intestinal disease. In healthy individuals with a family history of CD, the antibodies may precede the clinical onset of disease in approximately 25% of the subjects. Gliadin antibody levels will decrease or increase depending on the removal or reintroduction of gluten into the diet. Patients who are IgA deficient develop celiac disease more frequently than individuals who have an intact IgA system. Therefore, gliadin and transglutaminase IgA antibodies may be absent in patients with celiac disease. IgG antibodies to gliadin are especially helpful in IgA deficient patients. A negative result indicates no gliadin antibody or levels below the negative cut-off of the assay. Results of this assay should be used in conjunction with clinical findings and other serological tests. These test results were obtained with the [employer] QUANTA Lite Gliadin IgG II and Gliadin IgA II. Gliadin values obtained with different manufacturers' assay methods may not be used interchangeably. Performed By: #### E NDO, GLIAD #### [place] [address] HPon 06-18-2022 H. Pylori IgG Negative Normal [facility] ([place]) Comment on above: Result Comment: INTE RPRETATION OF H. PYLORI IGG BY EIA: Negative No detectable antibodies to H. pylori. Positive H. pylori IgG antibody detected. Equivocal Equivocal for IgG antibodies to H. pylori. Repeat testing if still indicated. Performed By: #### E NDO, GLIAD #### [address] [address] .Auto Diffon 06-17-2022 Basophil, Absolute 0.0 10 3/mcL Normal 0.0-0.2 [facility] ([place]) Comment on above: Performed By: #### A MY, CMP, LIP, GFR #### [place] [address] #### HP #### [place] [address] Basophils/100 WBC (Bld) 0.4 % Normal 0.0-2.5 [facility] ([place]) Comment on above: Performed By: #### A MY, CMP, LIP, GFR #### [place] [address] #### HP #### [address] [address] Eosinophil, Absolute 0.1 10 3/mcL Normal 0.0-0.4 [facility] ([place]) Comment on above: Performed By: #### A MY, CMP, LIP, GFR #### [address] [address] #### HP #### [address] [address] Eosinophils/100 WBC (Bld) 0.5 % Normal 0.0-7.0 [facility] ([place]) Comment on above: Performed By: #### A MY, CMP, LIP, GFR #### [address] [address] #### HP #### [address] [id number] Lymphocyte, Absolute 2.6 10 3/mcL Normal 0.8-3.9 [facility] ([place]) Comment on above: Performed By: #### A MY, CMP, LIP, GFR #### [address] [address] #### HP #### [address] [address] Lymphocytes/100 WBC (Bld) 24.7 % Normal 10.0-50.0 [facility] ([place]) Comment on above: Performed By: #### A MY, CMP, LIP, GFR #### [address] [address] #### HP #### [address] [address] Monocyte, Absolute 0.7 10 3/mcL Normal 0.2-1.0 [facility] ([place]) Comment on above: Performed By: #### A MY, CMP, LIP, GFR #### [address] [address] #### HP #### [address] [address] Monocytes/100 WBC (Bld) 6.5 % Normal 1.7-13.0 [facility] ([place]) Comment on above: Performed By: #### A MY, CMP, LIP, GFR #### [address] [address] #### HP #### [address] [address] Neutrophils/100 WBC (Bld) 67.9 % Normal 37.0-80.0 [facility] ([place]) Comment on above: Performed By: #### A MY, CMP, LIP, GFR #### [address] [address] #### HP #### [address] [address] .GFRon 06-17-2022 GFR 106 ml/min/1.73sqm Normal [facility] ([place]) Comment on above: Result Comment: GFR Population mean for , Non- Americans Ages 20-29 = 116 mL/min/1.73 sq.m. Ages 30-39 = 107 mL/min/1.73 sq.m. Ages 40-49 = 99 mL/min/1.73 sq.m. Ages 50-59 = 93 mL/min/1.73 sq.m. Ages 60-69 = 85 mL/min/1.73 sq.m. Ages 70+ = 75 mL/min/1.73 sq.m. Chronic Kidney Disease: Less than 60 mL/min/1.73 square meters End Stage Renal Disease: Less than 15 mL/min/1.73 square meters Performed By: #### A MY, CMP, LIP, GFR #### [address] [address] #### HP #### [address] [address] GFR Non- 88 ml/min/1.73sqm Normal [facility] ([place]) Comment on above: Result Comment: GFR Population mean for , Non- Americans Ages 20-29 = 116 mL/min/1.73 sq.m. Ages 30-39 = 107 mL/min/1.73 sq.m. Ages 40-49 = 99 mL/min/1.73 sq.m. Ages 50-59 = 93 mL/min/1.73 sq.m. Ages 60-69 = 85 mL/min/1.73 sq.m. Ages 70+ = 75 mL/min/1.73 sq.m. Chronic Kidney Disease: Less than 60 mL/min/1.73 square meters End Stage Renal Disease: Less than 15 mL/min/1.73 square meters Performed By: #### A MY, CMP, LIP, GFR #### [place] [id number] #### HP #### [place] [address] .MDWon 06-17-2022 Monocyte Distribution Width Not performed Normal 0.00-20.00 [facility] ([place]) Comment on above: Result Comment: MDW testing performed only on adult ER patients between the ages of 18-89 years. Performed By: #### A MY, CMP, LIP, GFR #### [place] [address] #### HP #### [place] [address] .NEUABSon 06-17-2022 Neutrophil, Absolute 7.2 10 3/mcL High 2.9-6.2 [facility] ([place]) Comment on above: Performed By: #### A MY, CMP, LIP, GFR #### [address] [address] #### HP #### [place] [address] AMYon 06-17-2022 Amylase [Catalytic activity/Vol] 66 U/L Normal 25-115 [facility] ([place]) Comment on above: Performed By: #### A MY, CMP, LIP, GFR #### [place] [id number] #### HP #### [place] [address] CBCon 06-17-2022 Erythrocyte distribution width (RBC) [Ratio] 12.7 % Normal 11.5-14.5 [facility] ([place]) Comment on above: Performed By: #### A MY, CMP, LIP, GFR #### [place] [address] #### HP #### [place] [address] Hematocrit (Bld) [Volume fraction] 41.7 % Low 42.0-52.0 [facility] ([place]) Comment on above: Performed By: #### A MY, CMP, LIP, GFR #### [place] [address] #### HP #### [place] [address] Hgb 14.6 G/dL Normal 14.0-18.0 [facility] ([place]) Comment on above: Performed By: #### A MY, CMP, LIP, GFR #### [place] [address] #### HP #### [place] [address] MCH (RBC) [Entitic mass] 32.0 pg High 27.0-31.2 [facility] ([place]) Comment on above: Performed By: #### A MY, CMP, LIP, GFR #### [place] [address] #### HP #### [place] [address] MCHC 34.9 G/dL Normal 31.8-35.4 [facility] ([place]) Comment on above: Performed By: #### A MY, CMP, LIP, GFR #### [place] [address] #### HP #### [place] [address] MCV (RBC) [Entitic vol] 91.8 fL Normal 80.0-94.0 [facility] ([place]) Comment on above: Performed By: #### A MY, CMP, LIP, GFR #### [place] [address] #### HP #### [address] [address] Platelet 237 10 3/mcL Normal 130-400 [facility] ([place]) Comment on above: Performed By: #### A MY, CMP, LIP, GFR #### [address] [address] #### HP #### [address] [address] Platelet mean volume (Bld) [Entitic vol] 7.9 fL Normal 7.4-10.4 [facility] ([place]) Comment on above: Performed By: #### A MY, CMP, LIP, GFR #### [place] [address] #### HP #### [place] [address] RBC 4.54 10 6/mcL Normal 4.04-6.13 [facility] ([place]) Comment on above: Performed By: #### A MY, CMP, LIP, GFR #### [place] [address] #### HP #### [place] [address] WBC 10.6 10 3/mcL Normal 4.6-10.8 [facility] ([place]) Comment on above: Performed By: #### A MY, CMP, LIP, GFR #### [place] [address] #### HP #### [place] [address] CMPon 06-17-2022 Albumin Level 4.5 G/dL Normal 3.5-5.0 [facility] ([place]) Comment on above: Performed By: #### A MY, CMP, LIP, GFR #### [place] [address] #### HP #### [place] [address] Albumin/Globulin [Mass ratio] 1.4 {ratio} Normal 1.1-2.5 [facility] ([place]) Comment on above: Performed By: #### A MY, CMP, LIP, GFR #### [address] [address] #### HP #### [address] [address] ALP [Catalytic activity/Vol] 58 U/L Normal 40-135 [facility] ([place]) Comment on above: Performed By: #### A MY, CMP, LIP, GFR #### [place] [address] #### HP #### [address] [address] ALT [Catalytic activity/Vol] 18 U/L Normal 16-63 [facility] ([place]) Comment on above: Performed By: #### A MY, CMP, LIP, GFR #### [place] [address] #### HP #### [address] [address] AST [Catalytic activity/Vol] 20 U/L Normal 10-40 [facility] ([place]) Comment on above: Performed By: #### A MY, CMP, LIP, GFR #### [place] [address] #### HP #### [address] [address] Bili Total 1.5 mg/dL High 0.2-1.0 [facility] ([place]) Comment on above: Result Comment: Use of this assay is not recommended for patients undergoing treatment with eltrombopag due to the potential for falsely elevated results. Performed By: #### A MY, CMP, LIP, GFR #### [address] [address] #### HP #### [address] [address] BUN/Creatinine Ratio 15 ratio Normal 7-27 [facility] ([place]) Comment on above: Performed By: #### A MY, CMP, LIP, GFR #### [place] [address] #### HP #### [address] [address] Calcium [Mass/Vol] 9.8 mg/dL Normal 8.4-10.2 [facility] ([place]) Comment on above: Performed By: #### A MY, CMP, LIP, GFR #### [address] [address] #### HP #### [address] [address] Chloride [Moles/Vol] 102 mmol/L Normal 98-107 [facility] ([place]) Comment on above: Performed By: #### A MY, CMP, LIP, GFR #### [address] [address] #### HP #### [address] [address] CO2 [Moles/Vol] 28 mmol/L Normal 22-29 [facility] ([place]) Comment on above: Performed By: #### A MY, CMP, LIP, GFR #### [place] [address] #### HP #### [address] [address] Creatinine [Mass/Vol] 1.00 mg/dL Normal 0.70-1.30 [facility] ([place]) Comment on above: Performed By: #### A MY, CMP, LIP, GFR #### [address] [address] #### HP #### [place] [address] Electrolyte Balance 11.0 mEq/L Normal 4.0-15.0 [facility] ([place]) Comment on above: Performed By: #### A MY, CMP, LIP, GFR #### [address] [address] #### HP #### [place] [address] Globulin 3.2 G/dL Normal [facility] ([place]) Comment on above: Performed By: #### A MY, CMP, LIP, GFR #### [address] [address] #### HP #### [address] [address] Glucose [Mass/Vol] 87 mg/dL Normal 70-105 [facility] ([place]) Comment on above: Performed By: #### A MY, CMP, LIP, GFR #### [address] [address] #### HP #### [address] [address] Potassium [Moles/Vol] 4.5 mmol/L Normal 3.5-5.1 [facility] ([place]) Comment on above: Performed By: #### A MY, CMP, LIP, GFR #### [place] [address] #### HP #### [address] [address] Sodium [Moles/Vol] 141 mmol/L Normal 136-145 [facility] ([place]) Comment on above: Performed By: #### A MY, CMP, LIP, GFR #### [address] [address] #### HP #### [address] [address] Total Protein 7.7 G/dL Normal 6.4-8.2 [facility] ([place]) Comment on above: Performed By: #### A MY, CMP, LIP, GFR #### [place] [address] #### HP #### [address] [address] Urea nitrogen [Mass/Vol] 15 mg/dL Normal 7-18 [facility] ([place]) Comment on above: Performed By: #### A MY, CMP, LIP, GFR #### [address] [address] #### HP #### [address] [address] LABORATORYOrdered By: Dasha Segovia on 06-17-2022 Albumin BCP dye [Mass/Vol] 4.5 G/dL Invalid Interpretation Code 3.5 - 5.0 G/dL AO ADM SS Albumin/Globulin [Mass ratio] 1.4 {ratio} Invalid Interpretation Code 1.1 - 2.5 ratio AO ADM SS ALP [Catalytic activity/Vol] 58 U/L Invalid Interpretation Code 40 - 135 U/L AO ADM SS ALT With P-5'-P [Catalytic activity/Vol] 18 U/L Invalid Interpretation Code 16 - 63 U/L AO ADM SS Amylase [Catalytic activity/Vol] 66 U/L Invalid Interpretation Code 25 - 115 U/L AO ADM SS AST With P-5'-P [Catalytic activity/Vol] 20 U/L Invalid Interpretation Code 10 - 40 U/L AO ADM SS Bilirubin [Mass/Vol] 1.5 mg/dL Invalid Interpretation Code 0.2 - 1.0 mg/dL AO ADM SS Calcium [Mass/Vol] 9.8 mg/dL Invalid Interpretation Code 8.4 - 10.2 mg/dL AO ADM SS Chloride [Moles/Vol] 102 mmol/L Invalid Interpretation Code 98 - 107 mmol/L AO ADM SS CO2 [Moles/Vol] 28 mmol/L Invalid Interpretation Code 22 - 29 mmol/L AO ADM SS Creatinine [Mass/Vol] 1.00 mg/dL Invalid Interpretation Code 0.70 - 1.30 mg/dL AO ADM SS Electrolyte Balance 11.0 mEq/L Invalid Interpretation Code 4.0 - 15.0 mEq/L AO ADM SS Globulin 3.2 G/dL Invalid Interpretation Code AO ADM SS Glucose [Mass/Vol] 87 mg/dL Invalid Interpretation Code 70 - 105 mg/dL AO ADM SS Lipase [Catalytic activity/Vol] 139 U/L Invalid Interpretation Code 73 - 393 U/L AO ADM SS Potassium [Moles/Vol] 4.5 mmol/L Invalid Interpretation Code 3.5 - 5.1 mmol/L AO ADM SS Protein [Mass/Vol] 7.7 G/dL Invalid Interpretation Code 6.4 - 8.2 G/dL AO ADM SS Sodium [Moles/Vol] 141 mmol/L Invalid Interpretation Code 136 - 145 mmol/L AO ADM SS Urea nitrogen [Mass/Vol] 15 mg/dL Invalid Interpretation Code 7 - 18 mg/dL AO ADM SS Urea nitrogen/Creatinine [Mass ratio] 15 ratio Invalid Interpretation Code 7 - 27 ratio AO ADM SS LABORATORYOrdered By: April Subramanian on 06-17-2022 Basophil, Absolute 0.0 103/mcL Invalid Interpretation Code 0.0 - 0.2 10^3/mcL AO Workflow SS Basophils/100 WBC (Bld) 0.4 % Invalid Interpretation Code 0.0 - 2.5 % AO Workflow SS Eosinophil, Absolute 0.1 103/mcL Invalid Interpretation Code 0.0 - 0.4 10^3/mcL AO Workflow SS Eosinophils/100 WBC (Bld) 0.5 % Invalid Interpretation Code 0.0 - 7.0 % AO Workflow SS Erythrocyte distribution width (RBC) [Ratio] 12.7 % Invalid Interpretation Code 11.5 - 14.5 % AO Workflow SS Hematocrit (Bld) [Volume fraction] 41.7 % Invalid Interpretation Code 42.0 - 52.0 % AO Workflow SS Hemoglobin (Bld) [Mass/Vol] 14.6 G/dL Invalid Interpretation Code 14.0 - 18.0 G/dL AO Workflow SS Lymphocyte, Absolute 2.6 103/mcL Invalid Interpretation Code 0.8 - 3.9 10^3/mcL AO Workflow SS Lymphocytes/100 WBC (Bld) 24.7 % Invalid Interpretation Code 10.0 - 50.0 % AO Workflow SS MCH (RBC) [Entitic mass] 32.0 pg Invalid Interpretation Code 27.0 - 31.2 pg AO Workflow SS MCHC 34.9 G/dL Invalid Interpretation Code 31.8 - 35.4 G/dL AO Workflow SS MCV (RBC) [Entitic vol] 91.8 fL Invalid Interpretation Code 80.0 - 94.0 fL AO Workflow SS Monocyte, Absolute 0.7 103/mcL Invalid Interpretation Code 0.2 - 1.0 10^3/mcL AO Workflow SS Monocytes/100 WBC (Bld) 6.5 % Invalid Interpretation Code 1.7 - 13.0 % AO Workflow SS Neutrophil, Absolute 7.2 103/mcL Invalid Interpretation Code 2.9 - 6.2 10^3/mcL AO Workflow SS Neutrophils/100 WBC (Bld) 67.9 % Invalid Interpretation Code 37.0 - 80.0 % AO Workflow SS Platelet mean volume (Bld) [Entitic vol] 7.9 fL Invalid Interpretation Code 7.4 - 10.4 fL AO Workflow SS Platelets (Bld) [#/Vol] 237 103/mcL Invalid Interpretation Code 130 - 400 10^3/mcL AO Workflow SS RBC (Bld) [#/Vol] 4.54 106/mcL Invalid Interpretation Code 4.04 - 6.13 10^6/mcL AO Workflow SS WBC 10.6 103/mcL Invalid Interpretation Code 4.6 - 10.8 10^3/mcL AO Workflow SS LABORATORYOrdered By: SYSTEM SYSTEM on 06-17-2022 GFR 106 ml/min/1.73sqm Invalid Interpretation Code AO Chemistry S GFR Non- 88 ml/min/1.73sqm Invalid Interpretation Code AO Chemistry S Monocyte distribution width Auto (Bld) [Entitic vol] Not Performed 1 *NA* (06/17/22 2:19 PM) Invalid Interpretation Code 0.00 - 20.00 AO Hematology S Comment on above: Result Comment: MDW testing performed only on adult ER patients between the ages of 18-89 years. LIPon 06-17-2022 Lipase Level 139 U/L Normal 73-393 [facility] ([place]) Comment on above: Performed By: #### A MY, CMP, LIP, GFR #### [address] [address] #### HP #### [place] [address] US ABDOMEN COMPLETEon 2021 US ABDOMEN COMPLETE ORIGINAL EXAMINATION: COMPLETE ABDOMINAL ULTRASOUND06/17/2022 2:56 pm ULTRASOUND ABDOMEN COMPLETE, COMPARISON: CT 04/07/2007 HISTORY: ORDERING SYSTEM PROVIDED HISTORY: Reason for Exam: Chronic pain with recurrent nausea, vomiting and diarrhea, FINDINGS: The liver is normal in size and echogenicity. No focal liver lesion is seen. There is no intrahepatic bile duct dilatation. The common duct is 3.4 mm at the abner hepatis. The gallbladder is sonographically normal without calculus, wall thickening or tenderness. The visualized pancreas is unremarkable but some portions are obscured by bowel gas artifacts. The spleen is normal in size and echogenicity. No ascites. Limited survey images of the kidneys show normal cortical thickness and echogenicity and no pelvicaliectasis. . Visualized IVC and aorta are not abnormally dilated. IMPRESSION: No significant findings. Interpreted by: Philippe De La Fuente MD Preliminary Report By: Philippe De La Fuente MD Electronically signed By Philippe De La Fuente MD Dictated Date: 06/17/2022 4:44:15 PM Prelim Date: 06/17/2022 4:45:07 PM Sign Date: 06/17/2022 4:45:07 PM Ordering Provider: MCKENZIE Biggs [facility] ([place]) PROGRESSon 08-12-2017 PROGRESS HNO ID: [id number]: Patty LawService: (none)Author Type: (none)Type: Progress NotesFiled: 08/12/2017 10:29 AMNote Text: Radiology Service Progress NotePATIENT NAME: Bess AshleyMRN: [id number] OF SERVICE: August 12, 2017TIME: 9:59 AMPATIENT IDENTITY VERIFICATION COMPLETED USING TWO (2) METHODS: Patientconfirmed name verbally and Date of .PATIENT GENDER DATA: MalePATIENT RELEVANT IMPLANT DATA REVIEWED: Not ApplicableRADIOLOGY DEPARTMENT: UltrasoundPERIPHERAL IV DATA: Not applicableSIGNED BY: Patty Alas2016 9:59 AM Normal [facility] US ABD RIGHT UPPER QUADRANTo n 08-12-2017 US ABD RIGHT UPPER QUADRANT * * *Final Report* * *DATE OF EXAM: Aug 12 2017 10:28AM WRU 1032 - US ABD RIGHT UPPER QUADRANT / REASON: Right upper quadrant pain * * * * Physician Interpretation * * * * RIGHT UPPER QUADRANT ULTRASOUNDSPLEEN ULTRASOUNDHISTORY: Right upper quadrant painCOMPARISON: NoneTECHNIQUE: Sonography of the right upper quadrant and spleen was performed. Images were obtained and stored in a permanent archive.RESULT:Pancreas : Portions obscured: Distal most tail Lesions: NoneLiver: Echotexture: Normal, homogeneous Echogenicity: Normal Surface contour: Smooth Lesions: NoneBiliary: Intrahepatic Biliary Dilation: Absent CBD: 3 mm, normal Gallbladder: Present -Cholelithiasis: Absent -Wall thickening: Absent -Pericholecystic fluid: Absent -Sonographic Lewis's sign: NegativeKidneys: No hydronephrosisAscites: NoneSpleen: No focal lesion. Measures 10.2 x 7.9 x 9.7 cm, within normal limits.IMPRESSION:LYDIA L SONOGRAPHIC APPEARANCE OF THE RIGHT UPPER QUADRANT AND SPLEEN.[employer] Hcm Consultant : AYAKA Transcribe Date/Time: Aug 12 2017 10:38ADictated by : Yumiko BROWNING examination was interpreted and the report reviewed and electronically signed by: LINSEY CAMARA MD on Aug 12 2017 10:42AM [id number] CN Normal [facility] US ABD SPLEENon 08-12-2017 US ABD SPLEEN * * *Final Report* * *DATE OF EXAM: Aug 12 2017 10:28AM WRU 1039 - US ABD SPLEEN / REASON: Right upper quadrant pain * * * * Physician Interpretation * * * * RIGHT UPPER QUADRANT ULTRASOUNDSPLEEN ULTRASOUNDHISTORY: Right upper quadrant painCOMPARISON: NoneTECHNIQUE: Sonography of the right upper quadrant and spleen was performed. Images were obtained and stored in a permanent archive.RESULT:Pancreas : Portions obscured: Distal most tail Lesions: NoneLiver: Echotexture: Normal, homogeneous Echogenicity: Normal Surface contour: Smooth Lesions: NoneBiliary: Intrahepatic Biliary Dilation: Absent CBD: 3 mm, normal Gallbladder: Present -Cholelithiasis: Absent -Wall thickening: Absent -Pericholecystic fluid: Absent -Sonographic Lewis's sign: NegativeKidneys: No hydronephrosisAscites: NoneSpleen: No focal lesion. Measures 10.2 x 7.9 x 9.7 cm, within normal limits.IMPRESSION:LYDIA L SONOGRAPHIC APPEARANCE OF THE RIGHT UPPER QUADRANT AND SPLEEN.[employer] Hcm Consultant : AYAKA Transcribe Date/Time: Aug 12 2017 10:38ADictated by : Yumiko BROWNING examination was interpreted and the report reviewed and electronically signed by: LINSEY CAMARA MD on Aug 12 2017 10:42AM [id number] CN Normal [facility] Amylaseon 08-10-2017 Amylase 82 U/L Normal 30-104 [facility] Comment on above: Performed By: #### C BCDIF, AMYL, CMP, LIPA, TSH, HPYLRI ####[facility] [place] [facility] [address] [place], [place] [phone] CBC and Differentialon 08-10 Abs Baso 0.03 k/uL Normal <0.11 [facility] Comment on above: Performed By: #### C BCDIF, AMYL, CMP, LIPA, TSH, HPYLRI ####[facility] [place] [phone] Abs Graves 0.78 k/uL Normal <0.87 [facility] Comment on above: Performed By: #### C BCDIF, AMYL, CMP, LIPA, TSH, HPYLRI ####[place] [address] [address] [place] [phone] Abs Neut 7.04 k/uL Normal 1.45-7.50 [facility] Comment on above: Performed By: #### C BCDIF, AMYL, CMP, LIPA, TSH, HPYLRI ####[place] [address] [address] [place] [phone] Basophils/100 WBC Auto (Bld) 0.3 % Normal [facility] Comment on above: Performed By: #### C BCDIF, AMYL, CMP, LIPA, TSH, HPYLRI ####[place] [address] [address] [place] [phone] DTYPE Auto Diff Normal [facility] Comment on above: Performed By: #### C BCDIF, AMYL, CMP, LIPA, TSH, HPYLRI ####[place] [address] [address] [place] [phone] Eosinophils 0.10 10*3/uL Normal <0.46 [facility] Comment on above: Performed By: #### C BCDIF, AMYL, CMP, LIPA, TSH, HPYLRI ####[place] [address] [address] [place] [phone] Eosinophils/100 leukocytes 1.1 % Normal [facility] Comment on above: Performed By: #### C BCDIF, AMYL, CMP, LIPA, TSH, HPYLRI ####[place] [address] [address] [place] [phone] Erythrocyte distribution width Auto Ratio (RBC) 12.4 % Normal 11.5-15.0 [facility] Comment on above: Performed By: #### C BCDIF, AMYL, CMP, LIPA, TSH, HPYLRI ####[place] [address] [address] [place] [phone] Erythrocytes (RBC) 0.00 10*6/uL Normal <0.[address] [facility] Comment on above: Performed By: #### C BCDIF, AMYL, CMP, LIPA, TSH, HPYLRI ####[address] [phone] Erythrocytes (RBC) 5.14 10*6/uL Normal 4.20-6.[address] [facility] Comment on above: Performed By: #### C BCDIF, AMYL, CMP, LIPA, TSH, HPYLRI ####[address] [place] [phone] Erythrocytes (RBC) 0.0 /100 WBC Normal [address] [facility] Comment on above: Performed By: #### C BCDIF, AMYL, CMP, LIPA, TSH, HPYLRI ####[place] [phone] Hematocrit (HCT) 49.0 % Normal 39.0-51.0 [facility] Comment on above: Performed By: #### C BCDIF, AMYL, CMP, LIPA, TSH, HPYLRI ####[address] [place] [phone] Hemoglobin mass conc (Bld) 15.7 g/dL Normal 13.0-17.0 [facility] Comment on above: Performed By: #### C BCDIF, AMYL, CMP, LIPA, TSH, HPYLRI ####[address] [place] [phone] Lymphocytes 1.49 10*3/uL Normal 1.00-4.00 [facility] Comment on above: Performed By: #### C BCDIF, AMYL, CMP, LIPA, TSH, HPYLRI ####[place] [address] [address] [place] [phone] Lymphocytes/100 leukocytes 15.8 % Normal [facility] Comment on above: Performed By: #### C BCDIF, AMYL, CMP, LIPA, TSH, HPYLRI ####[address] [place] [phone] MCH 30.5 pG Normal 26.0-34.0 [facility] Comment on above: Performed By: #### C BCDIF, AMYL, CMP, LIPA, TSH, HPYLRI ####[address] [place] [phone] MCHC mass conc (RBC) 32.0 g/dL Normal 30.5-36.[address] [facility] Comment on above: Performed By: #### C BCDIF, AMYL, CMP, LIPA, TSH, HPYLRI ####[address] [place] [phone] MCV 95.3 fL Normal 80.0-100.0 [facility] Comment on above: Performed By: #### C BCDIF, AMYL, CMP, LIPA, TSH, HPYLRI ####[address] [place] [phone] Monocytes/100 leukocytes 8.3 % Normal [facility] Comment on above: Performed By: #### C BCDIF, AMYL, CMP, LIPA, TSH, HPYLRI ####[place] [address] [address] [place] [phone] Neutrophils/100 WBC Auto (Bld) 74.5 % Normal [facility] Comment on above: Performed By: #### C BCDIF, AMYL, CMP, LIPA, TSH, HPYLRI ####[place] [address] [address] [place] [phone] Platelet mean volume (PMV) 10.6 fL Normal 9.0-12.7 [facility] Comment on above: Performed By: #### C BCDIF, AMYL, CMP, LIPA, TSH, HPYLRI ####[facility] [place] [facility] [address], [place] [phone] Platelets 192 10*3/uL Normal 150-400 [facility] Comment on above: Performed By: #### C BCDIF, AMYL, CMP, LIPA, TSH, HPYLRI ####[facility] [place] [facility] [address] AveCUmat[place], [place] [phone] WBC (Leukocytes) 9.44 10*3/uL Normal 3.70-11.00 [facility] Comment on above: Performed By: #### C BCDIF, AMYL, CMP, LIPA, TSH, HPYLRI ####[facility] [place] [facility] [address], [place] [phone] CNOVon 08-10-2017 CNOV Office Visit (FAMPWS) BESS MCGOWAN ([id number]) 1990 [facility] Time Provider Pxmwzpndns07/10/17 7:40 AM LIZ CHAVEZ) FAMPWS During your visit today, we recorded the following information about you: Pulse Respiration Blood pressure Weight 60/minute 16/minute 108/72 53.5 kgAmanda Lizeth Chavez CNP, LAI 08/10/2017 8:23 AM SignedHPI/CC: Bess Mooreder is a 26 year old male who presents for Flank Pain, painis constant, sharp throbbing pain x3-4 days 03/10. Reports daily vomiting withabdominal crampingDenies UTI symptoms, fevers, chills, change in BMs, blood in stools.Reports significant weight loss in approximately 2 months. Was 133 lbs now 118lbPMHx of ecoliROS as above, otherwise non-contributory.Review ed PMHx, PSHx, social Hx, medications and allergies.PHYSICAL EXAMINATION:BP 108/72 Pulse 60 Resp 16 Wt 53.5 kg (118 lb)General appearance: Well appearing, alert, in no acute distress, well-hydrated,well nourished, appears thinSkin: Positives: white flat patches on back, no drainageHead: Normocephalic, no masses, lesions, tenderness or abnormalitiesOropharynx : Positive findings: multiple dental cariesLungs: Lungs clear to auscultation. No wheezing, rhonchi, ralesHeart: RRR without murmur, gallop, or rubs. No ectopyAbdomen: Normal abdominal exam, Abdomen soft, Bowel sounds normal. No masses,organomegaly. + RUQ painASSESSMENT/PLAN:1. RUQ pain - ICD9: 789.01, ICD10: R10.11Etiology unclearDifferential Diagnosis includes Gastritis and Gall bladder colic/cholelithiasis- Labs of CBC with Diff, CMP, Amylase, Lipase and Urine analysis- Work up with RUQ ultrasound- COMP METABOLIC PANEL- LIPASE BLD- AMYLASE BLD- CBC + DIFF- US ABD RT UPPER QUADRANT- UA DIP B/O- H.Pylori- Epi Chavez CNPReferring Provider: SELF [200]Allergies As of Date: 08/10/2017(No Known Allergies)Date Reviewed: 08/10/2017Reviewed by: Liz Stanley (Lai) LAI Chavez - Fully AssessedReason for Visit: Flank Pain [356] Cmt: constant, sharp x3-4 daysPrimary Visit Diagnosis:RUQ pain [R10.11]Order(s):COMP METABOLIC PANEL [SQCMP] Order #: [id number] FUTURE LIPASE BLD [SQLIPA] Order #: [id number] FUTURE AMYLASE BLD [SQAMYL] Order #: [id number] FUTURE CBC + DIFF [SQCBCDIF] Order #: [id number] FUTURE US ABD RT UPPER QUADRANT [[id number]] Order #: [id number] FUTURE UA DIP B/O [[id number]] Order #: [id number] TSH BLD [SQTSH] Order #: [id number] FUTURE H PYLORI IGG AB [SQHPYLRI] Order #: [id number] FUTUREProblem List As Of Date: 08/10/2017(None)[facility] er Number: [id number] Status:Closed by LIZ CHAVEZ CNP on 08/10/17 Normal [facility] Comp Metabolic Panelon 08-10 Alanine aminotransferase (ALT) 15 U/L Normal 10-54 [facility] Comment on above: Performed By: #### C BCDIF, AMYL, CMP, LIPA, TSH, HPYLRI ####[place] [address] [address] [place] [phone] Albumin 4.7 g/dL Normal 3.9-4.9 [facility] Comment on above: Performed By: #### C BCDIF, AMYL, CMP, LIPA, TSH, HPYLRI ####[place] [address] [address] [place] [phone] Alkaline phosphatase (ALP) 50 U/L Normal 36-108 [facility] Comment on above: Performed By: #### C BCDIF, AMYL, CMP, LIPA, TSH, HPYLRI ####[place] [address] [address] [place] [phone] Anion gap 13 mmol/L Normal 9-18 [facility] Comment on above: Performed By: #### C BCDIF, AMYL, CMP, LIPA, TSH, HPYLRI ####[facility] AveCTimothy [place] [phone] Aspartate aminotransferase (AST) 22 U/L Normal 14-40 [facility] Comment on above: Performed By: #### C BCDIF, AMYL, CMP, LIPA, TSH, HPYLRI ####[place] [address] [address] [place] [phone] Bilirubin (total) 0.3 mg/dL Normal 0.2-1.3 [facility] Comment on above: Performed By: #### C BCDIF, AMYL, CMP, LIPA, TSH, HPYLRI ####[place] [address] [address] [place] [phone] Calcium 9.6 mg/dL Normal 8.5-10.2 [facility] Comment on above: Performed By: #### C BCDIF, AMYL, CMP, LIPA, TSH, HPYLRI ####[place] [address] [address] [place] [phone] Chloride 101 mmol/L Normal 97-105 [facility] Comment on above: Performed By: #### C BCDIF, AMYL, CMP, LIPA, TSH, HPYLRI ####[place] [address] [address] [place] [phone] CO2 25 mmol/L Normal 22-30 [facility] Comment on above: Performed By: #### C BCDIF, AMYL, CMP, LIPA, TSH, HPYLRI ####[place] [phone] Creatinine 0.94 mg/dL Normal 0.73-1.22 [facility] Comment on above: Performed By: #### C BCDIF, AMYL, CMP, LIPA, TSH, HPYLRI ####[address]Eric [place] [phone] eGFR (non-black) mL/min/{1.73_m2} Normal [facility] Comment on above: Performed By: #### C BCDIF, AMYL, CMP, LIPA, TSH, HPYLRI ####[place] [phone] Result Comment: eGFR (Estimated GFR) Units of measure: mL/min/1.73 meters squaredeGFR is derived from the reexpressed MDRD Study equation using the following parameters: serum creatinine, age, gender and race. The creatinine assay has been calibrated to be traceable to IDMS.An eGFR <60 mL/min/1.73m2 for >3 months is consistent with chronic kidney disease. Refer to KDOQI guidelines for clinical interpretation.In patients with unstable renal function, e.g. those with acute kidney injury, the eGFR may not accurately reflect actual GFR. Glucose mass conc 84 mg/dL Normal 74-99 [facility] Comment on above: Result Comment: The [place] Diabetes Association (ADA) provides guidance for cutoff values for fasting glucose and random glucose. The ADA defines fasting as no caloric intake for at least 8 hours. Fasting plasma glucose results between 100 to 125 mg/dL indicate increased risk for diabetes (prediabetes).Fasting plasma glucose results greater than or equal to 126 mg/dL meet the criteria for diagnosis of diabetes. In the absence of unequivocal hyperglycemia, results should be confirmed by repeat testing. In a patient with classic symptoms of hyperglycemia or hyperglycemic crisis, random plasma glucose results greater than or equal to 200 mg/dL meet the criteria for diagnosis of diabetes.Reference: Standards of Medical Care in Diabetes 2016, [place] [employer] Association. Diabetes Care. 2016.39(Suppl 1). Performed By: #### C BCDIF, AMYL, CMP, LIPA, TSH, HPYLRI ####[facility] [place], [place] [phone] Potassium molar conc 4.8 mmol/L Normal 3.7-5.[address] [facility] Comment on above: Performed By: #### C BCDIF, AMYL, CMP, LIPA, TSH, HPYLRI ####[facility], [place] [phone] Protein 7.8 g/dL Normal 6.3-8.0 [facility] Comment on above: Performed By: #### C BCDIF, AMYL, CMP, LIPA, TSH, HPYLRI ####[facility] [place], [place] [phone] Sodium 139 mmol/L Normal 136-144 [facility] Comment on above: Performed By: #### C BCDIF, AMYL, CMP, LIPA, TSH, HPYLRI ####[facility] [place], [place] [phone] Urea nitrogen 11 mg/dL Normal 9-24 [facility] Comment on above: Performed By: #### C BCDIF, AMYL, CMP, LIPA, TSH, HPYLRI ####[facility] [place], [place] [phone] Helico pylori Abon 7 H pylori Ab, IgG <0.4 Normal [facility] Comment on above: Result Comment: U/mL are interpreted as follows:Negative specimens <0.9Indeterminate specimens >=0.9 to <1.1Positive specimens >=1.1Results were obtained with the IMMULITE 2000 H.pylori IgG EIA. Results obtained from other manufacturers' assay methods may not be used interchangeably. Performed By: #### C BCDIF, AMYL, CMP, LIPA, TSH, HPYLRI ####[place] [id number] [place], [place] [phone] H. pylori IgG, Qual Negative Normal Negative [facility] Comment on above: Result Comment: H. p ylori IgG antibodies were not detected in the sample. Negative results by this test do not preclude recent primary infection. Performed By: #### C BCDIF, AMYL, CMP, LIPA, TSH, HPYLRI ####[facility] [place], [place] [phone] Lipaseon 08-10-2017 Lipase 30 U/L Normal 16-61 [facility] Comment on above: Performed By: #### C BCDIF, AMYL, CMP, LIPA, TSH, HPYLRI ####[place] [id number] [place], [place] [phone] PROGRESSon 08-10-2017 PROGRESS HNO ID: [id number]: Liz Stanley (Temperer) Luke Chavez: (none)Author Type: Nurse PractitionerType: Progress NotesFiled: 08/10/2017 8:23 AMNote Text:HPI/CC: Bess Ashley is a 26 year old male who presents for Flank Pain,pain is constant, sharp throbbing pain x3-4 days 03/10. Reports dailyvomiting with abdominal crampingDenies UTI symptoms, fevers, chills, change in BMs, blood in stools.Reports significant weight loss in approximately 2 months. Was 133 lbs [id number] of ecoliROS as above, otherwise non-contributory.Review ed PMHx, PSHx, social Hx, medications and allergies.PHYSICAL EXAMINATION:BP 108/72 Pulse 60 Resp 16 Wt 53.5 kg (118 lb)General appearance: Well appearing, alert, in no acute distress,well-hydrated, well nourished, appears thinSkin: Positives: white flat patches on back, no drainageHead: Normocephalic, no masses, lesions, tenderness or abnormalitiesOropharynx : Positive findings: multiple dental cariesLungs: Lungs clear to auscultation. No wheezing, rhonchi, ralesHeart: RRR without murmur, gallop, or rubs. No ectopyAbdomen: Normal abdominal exam, Abdomen soft, Bowel sounds normal. Nomasses, organomegaly. + RUQ painASSESSMENT/PLAN:1. RUQ pain - ICD9: 789.01, ICD10: R10.11Etiology unclearDifferential Diagnosis includes Gastritis and Gall bladdercolic/cholelithi asis- Labs of CBC with Diff, CMP, Amylase, Lipase and Urine analysis- Work up with RUQ ultrasound- COMP METABOLIC PANEL- LIPASE BLD- AMYLASE BLD- CBC + DIFF- US ABD RT UPPER QUADRANT- UA DIP B/O- H.Pylori- Epi Chavez CNP Normal [facility] TSHon 08-10-2017 Thyroid stimulating hormone (TSH) 1.590 uU/mL Normal 0.400-5.500 [facility] Comment on above: Performed By: #### C BCDIF, AMYL, CMP, LIPA, TSH, HPYLRI ####[facility] [place] [facility] [address] [place], [place] [phone] Laboratory - Chemistry and C hemistry - challengeon 01-02-2011 Bilirubin Ql (U) Negative Normal [facility] Ketones Ql (U) Negative Normal [facility] pH (U) 5.0 [pH] Normal [facility] Specific gravity (U) [Rel density] 1.020 Normal [facility] [employer] [facility] Laboratory - Hematology and Cell countson 01-02-2011 Hemoglobin Ql (U) Negative Normal [email or web address] Laboratory - Specimen inform ationon 01-02-2011 Appearance (U) CLEAR Normal [facility] Jessica kumar [facility].; [facility] Color (U) YELLOW [facility] [employer] [facility].; [facility] [employer] [facility] Laboratory - Urinalysison Glucose Test strip (U) [Mass/Vol] Negative Normal [facility].; [facility] Leukocyte esterase Test strip Ql (U) Negative Normal [email or web address].; [facility] [employer] [facility] Nitrite Ql (U) Negative Normal [facility] [employer] [facility] Protein Ql (U) TRACE [facility]CY[facility].; [facility] [employer] [facility] No Panel Informationon 01-02 UA - ODOR Negative Normal [facility].; [facility] UA - UROBILIGEN 0.2 [facility].; [facility] [employer] [facility] Vital Signs Date Time Vital Sign Value Performing Clinician Facility 06-16-2023 19:38-0400 Respiratory rate 18 /min [facility] 06-16-2023 17:41-0400 Body height 170.18 cm [facility] 06-16-2023 17:41-0400 Body mass index (BMI) [Ratio] 20.5 kg/m2 [facility] 06-16-2023 17:41-0400 Body temperature 97.3 [degF] [facility] 06-16-2023 17:41-0400 Body weight 59.32 kg [facility] 06-16-2023 17:41-0400 Diastolic blood pressure 93 mm[Hg] [facility] 06-16-2023 17:41-0400 Heart rate 78 /min [facility] 06-16-2023 17:41-0400 SaO2% (BldA) [Mass fraction] 98 % [facility] 06-16-2023 17:41-0400 Systolic blood pressure 145 mm[Hg] [facility] 01-02-2011 15:25-0500 Body height 172.72 cm Rosenda BOTELLO MD Work Phone: [employer] [facility] IllCY[facility].; [facility] [employer] [facility]. 01-02-2011 15:25-0500 Body mass index (BMI) [Percentile] Per age and sex 4 % Rosenda BOTELLO MD Work Phone: [employer] [facility] IllCYTIM[facility]UN[facility] SCIENCES.; [employer] [facility] [facility]. 01-02-2011 15:25-0500 Body mass index (BMI) [Ratio] 18.7 kg/m2 Rosenda BOTELLO MD Work Phone: [employer] [facility] IllCYTIM[facility]UN[facility].; [facility] [employer] [facility]. 01-02-2011 15:25-0500 Body surface area Derived from formula 1.66 m2 Rosenda BOTELLO MD Work Phone: [employer] [facility] IllCYTIMMUNE SCIENCES.; [employer] [facility] [employer] [facility] IllCY[facility]. 01-02-2011 15:25-0500 Body temperature 98.1 [degF] Rosenda BOTELLO MD Work Phone: [employer] [facility] IllCYTIMMUNE SCIENCES.; [employer] [facility] [employer] [facility] IllCYTIM[facility]. Comment on above: Method: Oral 01-02-2011 15:25-0500 Body weight 55.79 kg Rosenda BOTELLO MD Work Phone: [employer] [facility] IllCYTIM[facility]UN[facility].; [employer] [facility] Healthcare[facility] IllCY[facility]. 01-02-2011 15:25-0500 Diastolic blood pressure 68 mm[Hg] Rosenda BOTELLO MD Work Phone: [facility].; [facility]. Comment on above: Patient Position: Sitting; Cuff Location : Left Arm; Cuff Size: Standard 01-02-2011 15:25-0500 Heart rate 73 /min Rosenda BOTELLO MD Work Phone: [facility].; [facility]. Comment on above: Pattern: Regular 01-02-2011 15:25-0500 Systolic blood pressure 130 mm[Hg] Rosenda BOTELLO MD Work Phone: [facility].; [facility]. Comment on above: Patient Position: Sitting; Cuff Location : Left Arm; Cuff Size: Standard Encounters Encounter Date Encounter Type Care Provider Facility Start: 06-16-2023 End: 06-16-2023 [facility] Start: 06-16-2023 End: 06-16-2023 Emergency department patient visit [facility] Work Phone: Start: 09-03-2022 [facility] Start: 09-03-2022 End: 09-03-2022 Emergency department patient visit DR ROMEL ANDERSON [facility] Start: 07-09-2022 End: 07-09-2022 Patient encounter procedure MCKENZIE PETERSON FRINGE MAKER - MANAGER ORDER [facility] Start: 06-17-2022 End: 06-17-2022 Patient encounter procedure MCKENZIE PETERSON FRINGE MAKER - MANAGER ORDER [facility] Start: 08-12-2017 End: 08-12-2017 Ambulatory LIZ L (MANAGER ORDER) [facility] Start: 08-10-2017 End: 08-10-2017 Ambulatory LIZ L (MANAGER ORDER) [facility] Start: 01-02-2011 End: 01-02-2011 Patient encounter procedure R ALAYNA KORNHAUS MD Work Phone: [email or web address]. Start: 12-26-2010 End: 12-26-2010 Historical Summary Rosenda BOTELLO MD Work Phone: [facility]. Procedures Date Procedure Procedure Detail Performing Clinician Start: 06-16-2023 X-ray of chest posteroanterior view Plan of Treatment Date Care Activity Detail Author Patient Education ED Chest Wall Contusion [facility] Work Phone: Patient referral [facility] Work Phone: Payers Date Payer Category Payer Self-pay 1990 Unknown [id number] Self-pay SELF PAY INSURANCE [id number] Unknown [id number] Worker's Compensation [id number] Unknown [employer] Social History Date Type Detail Facility Start: 06-01-2022 Tobacco smoking status Heavy t obacco smoker (finding) [facility] Sex Assigned At Sex [facility] Start: 06-16-[address] [facility] if ever smoked [facility] Start: 1990 Sex Assigned At Male W [facility] Tobacco use: Tobacco use: ; U ses chewing tobacco. [facility] [employer] [facility] [email or web address] Inc.; [email or web address] Uses chewing tobacco [facility]CY[facility].; [facility] Work Phone: Mental Status Date Assessment Result Facility 06-16-2023 Cognitive function Level Of Cons ciousness Awake;Alert;Appropriate;Follow s Commands [facility] Work Phone: Clinical Note 07-09-2022 Note Date & Type Note Facility 07-09-2022 Note ORIGINAL EXAMINATION: HIDA07/09/2022 12:40 pm TECHNIQUE: Approximately 4.3 millicuries Tc99m Mebrofenin was administered IV. Then, dynamic images of the abdomen were obtained in the anterior projection for 60 mins. Slow infusion of 1.1 mcg cholecystokinin was administered intravenously over 30 mins. Images were obtained in the anterior projection and regions of interest were drawn around the gallbladder and ejection fraction was calculated. COMPARISON: None HISTORY: Reason for Exam: see Dx Right upper quadrant pain FINDINGS: Prompt, homogenous uptake by the liver is noted with normal appearance of radiotracer excretion into the biliary system. Clearance of blood pool activity appears appropriate. Gallbladder and small bowel are visualized in appropriate sequence and time. Bowel activity adjacent to the gallbladder limits accurate calculation of gallbladder ejection fraction. Gallbladder ejection fraction is approximately 57%. Normal value is >35% for CCK protocol. IMPRESSION: Adequate gallbladder emptying. Interpreted by: Prem Gilbert MD Preliminary Report By: Prem Gilbert MD Electronically signed By Prem Gilbert MD Dictated Date: 07/09/2022 12:44:09 PM Prelim Date: 07/09/2022 12:47:58 PM Sign Date: 07/09/2022 12:47:58 PM Ordering Provider: MCKENZIE PETERSON [facility] Clinical Note 07-09-2022 Note Date & Type Note Facility 07-09-2022 Note [facility] pm TECHNIQUE: Approximately 4.3 millicuries Tc99m Mebrofenin was administered IV. Then, dynamic images of the abdomen were obtained in the anterior projection for 60 mins. Slow infusion of 1.1 mcg cholecystokinin was administered intravenously over 30 mins. Images were obtained in the anterior projection and regions of interest were drawn around the gallbladder and ejection fraction was calculated. COMPARISON: None HISTORY: Reason for Exam: see Dx Right upper quadrant pain FINDINGS: Prompt, homogenous uptake by the liver is noted with normal appearance of radiotracer excretion into the biliary system. Clearance of blood pool activity appears appropriate. Gallbladder and small bowel are visualized in appropriate sequence and time. Bowel activity adjacent to the gallbladder limits accurate calculation of gallbladder ejection fraction. Gallbladder ejection fraction is approximately 57%. Normal value is >35% for CCK protocol. IMPRESSION: Adequate gallbladder emptying. Interpreted by: Prem Gilbert MD Preliminary Report By: Prem Gilbert MD Electronically signed By Prem Gilbert MD Dictated Date: 07/09/2022 12:44:09 PM Prelim Date: 07/09/2022 12:47:58 PM Sign Date: 07/09/2022 12:47:58 PM Ordering Provider: MCKENZIE [facility] Clinical Note 06-17-2022 Note Date & Type Note Facility 06-17-2022 Note ORIGINAL EXAMINATION: COMPLETE ABDOMINAL ULTRASOUND06/17/2022 2:56 pm ULTRASOUND ABDOMEN COMPLETE, COMPARISON: CT 04/07/2007 HISTORY: ORDERING SYSTEM PROVIDED HISTORY: Reason for Exam: Chronic pain with recurrent nausea, vomiting and diarrhea, FINDINGS: The liver is normal in size and echogenicity. No focal liver lesion is seen. There is no intrahepatic bile duct dilatation. The common duct is 3.4 mm at the abner hepatis. The gallbladder is sonographically normal without calculus, wall thickening or tenderness. The visualized pancreas is unremarkable but some portions are obscured by bowel gas artifacts. The spleen is normal in size and echogenicity. No ascites. Limited survey images of the kidneys show normal cortical thickness and echogenicity and no pelvicaliectasis. . Visualized IVC and aorta are not abnormally dilated. IMPRESSION: No significant findings. Interpreted by: Philippe De La Fuente MD Preliminary Report By: Philippe De La Fuente MD Electronically signed By Philippe De La Fuente MD Dictated Date: 06/17/2022 4:44:15 PM Prelim Date: 06/17/2022 4:45:07 PM Sign Date: 06/17/2022 4:45:07 PM Ordering Provider: MCKENZIE [facility] Clinical Note 06-17-2022 Note Date & Type Note Facility 06-17-2022 Note ORIGINAL EXAMINATION: COMPLETE ABDOMINAL ULTRASOUND06/17/2022 2:56 pm ULTRASOUND ABDOMEN COMPLETE, COMPARISON: CT 04/07/2007 HISTORY: ORDERING SYSTEM PROVIDED HISTORY: Reason for Exam: Chronic pain with recurrent nausea, vomiting and diarrhea, FINDINGS: The liver is normal in size and echogenicity. No focal liver lesion is seen. There is no intrahepatic bile duct dilatation. The common duct is 3.4 mm at the abner hepatis. The gallbladder is sonographically normal without calculus, wall thickening or tenderness. The visualized pancreas is unremarkable but some portions are obscured by bowel gas artifacts. The spleen is normal in size and echogenicity. No ascites. Limited survey images of the kidneys show normal cortical thickness and echogenicity and no pelvicaliectasis. . Visualized IVC and aorta are not abnormally dilated. IMPRESSION: No significant findings. Interpreted by: Philippe De La Fuente MD Preliminary Report By: Philippe De La Fuente MD Electronically signed By Philippe De La Fuente MD Dictated Date: 06/17/2022 4:44:15 PM Prelim Date: 06/17/2022 4:45:07 PM Sign Date: 06/17/2022 4:45:07 PM Ordering Provider: MCKENZIE PETERSON [facility] Evaluation + Plan note Radiology Note Date & Type Note Facility Evaluation + Plan note Future Appointments Appointment Date:06/22/2022 03:00:00 PM Scheduled Provider:MCKENZIE PETERSON APRN, CNP Location:[facility] Appointment Type:PC OV Follow Up Diagnostic Tests PendingTGT Ab (IGA) 06/17/22Gliadin Antibody 06/17/22Helicobacter Pylori Antibody 06/17/22 Future Scheduled TestsCT Abdomen w/ Contrast 05/28/22 [facility] Evaluation + Plan note Radiology Note Date & Type Note Facility Evaluation + Plan note Future Appointments Appointment Date:07/13/2022 04:00:00 PM Scheduled Provider:MCKENZIE PETERSON APRN, CNP Location:[facility] Appointment Type:PC OV Follow Up Future Scheduled TestsCT Abdomen w/ Contrast 05/28/22 [facility] Evaluation note Note Date & Type Note Facility Evaluation note No assessment information availa [facility] Work Phone: Hospital course Narrative Note Date & Type Note Facility Hospital course Narrative No data available for this section [facility] Hospital Discharge instructions Note Date & Type Note Facility Hospital Discharge instructions No data available for this section [facility] Summary Purpose Family History No Family History Records FoundNo Family History Records FoundNo Family History Records FoundNo Family History Records Found Advance Directives Advance Directive Response Recorded Date/ Time Living Will No June 16 3 7:36pm Power of Line Tender No June 16 023 7:36pm Chief Complaint and Reason for Visit Chief Complaint rib pain Additional Source Comments (unrecognized sect ion and content) No Status Records FoundNo Status Records FoundNo Status Records FoundNo Status Records Found INFORMATION SOURCE (unrecogn ized section and content) DATE CREATED AUTHOR 04/26/2018 [facility] DATE CREATED AUTHOR AUTHOR'S ORGANIZ ATION 07/11/2022 [facility] DATE CREATED AUTHOR AUTHOR'S ORGANIZ ATION 09/11/2022 [facility] DATE CREATED AUTHOR AUTHOR'S ORGANIZ ATION 06/23/2023 [facility] Care Team (unrecognized sect ion and content) Care Team Personnel Name: MCKENZIE PETERSON FRINGE MAKER - MANAGER ORDER Position: P4 Advanced Practice Nurse Med Service: Employed Provider Member Role: Primary Care Physician Address: Address: [address] [place] [address] Care Team Related Persons Name: JAZ ASHLEY Care Team Personnel Name: MCKENZIE PETERSON FRINGE MAKER - MANAGER ORDER Position: P4 Advanced Practice Nurse Med Service: Employed Provider Member Role: Primary Care Physician Address: Address: [address] [place] [address] Care Team Related Persons Name: JAZ ASHLEY Care Teams (unrecognized sec tion and content) Team Status: Active Member Role Status Dates No Primary Care Physician Family Provider Active No Primary Care Physician Primary Care Provider Active Team Status: Inactive Member Role Status Dates No Primary Care Physician Primary Care Provider Active Dr. Nina Saunders MD Emergency Provider Active Goals (unrecognized section and content) Goals may be documented in a n alternate section FOR RECORDS PERTAINING TO PATIENTS WHO ARE OR HAVE BEEN ENROLLED IN A CHEMICAL DEPENDENCY/SUBSTANCEABUSE PROGRAM, SOME INFORMATION MAY BE OMITTED. This clinical summary was aggregated from multiple sources. Caution should be exercised in using it in the provision of clinical care. This summary normalizes information from multiple sources, and as a consequence, information in this document may materially change the coding, format and clinical context of patient data. In addition, data may be omitted in some cases. CLINICAL DECISIONS SHOULD BE BASED ON THE PRIMARY CLINICAL RECORDS. [email or web address]. provides no warranty or guarantee of the accuracy or completeness of information in this document.
[2025-06-05 09:16] LABS: AST(SGOT) 75 U/L (<=37); Alanine Aminotransfer ALT/SGPT 51 U/L (<=46); Albumin, Serum 4.3 g/dL (3.5-5.0); Alkaline Phosphatase 102 U/L (40-129); Anion Gap 15 (5-15); BUN 8 mg/dL (4-19); BUN/Creat Ratio 8.2 RATIO (10-20); Calcium,Total 9.7 mg/dL (7.6-11.0); Carbon Dioxide 21.8 mmol/L (21.0-32.0); Chloride 96 mmol/L (98-108); Estimated Creatinine Clearance 82.16 ml/min (50-250); Globulin 3.0 g/dL (2.2-4.2); Glucose 122 mg/dL (70-99); Potassium 3.7 mmol/L (3.3-5.1)
[2025-06-05 09:26] VITALS: BP 136/105; PULSE 75; RESP 18; TEMP 36.6; O2SAT 98
[2025-06-06 13:08] LABS: Lyme Scn Total Ab w/Rflx Negative (Negative)
== END 2025-06-05 09:27 | disposition home or self-care (01) ==
PROVIDERS: Emergency Provider Emergency Medicine; Visit Provider Emergency Medicine
DX: A69.20 Lyme disease, unspecified (principal); S00.86XA Insect bite (nonvenomous) of other part of head, initial encounter; F17.210 Nicotine dependence, cigarettes, uncomplicated; W57.XXXA Bitten or stung by nonvenomous insect and other nonvenomous arthropods, initial encounter
CPT/HCPCS: 80053; 85025; 86618; 96360; 99283; A4216